=== PATIENT | female | born 1955 | race Caucasian/White ===

== ENCOUNTER 2023-03-25 17:27 | Inpatient (IN) ==
[2023-03-25] MEDS ORDERED: SODIUM CHLORIDE 0.9% 500 ML IV STA (17:46)
[2023-03-25 18:13] LABS: Hematocrit (blood only) 40.8 % (37.0-47.0); Hemoglobin 13.9 g/dl (12.0-16.0); Mean Corpuscular Hgb Conc 34.1 g/dL (32.0-36.0); Mean Corpuscular Volume 87.9 fL (80.0-100.0); Mean Platelet Volume 10.3 fL (9.4-12.4); Platelet Count 287 K/uL (130-400); RDW Coefficient of Variation 14.2 % (11.5-14.5); RDW Standard Deviation 45.4 fL (36.4-46.3); Red Blood Count 4.64 M/uL (4.20-5.40); White Blood Count 16.29 K/ul (4.8-10.8)
[2023-03-25 18:31] LABS: Albumin Globulin Ratio 1.4 (0.9-2); Albumin Level 4.6 gm/dl (3.4-5.0); BUN Creatinine Ratio 17.4 (10-20); Bilirubin,Total 0.8 mg/dl (0.2-1.0); Calcium 9.8 mg/dl (8.6-10.3); Creatinine Clr Calc Pharmacy 51.1 ml/min; Est GFR (African American) 79.9 ml/min; Est GFR (Non-African American) 68.9 ml/min; Globulin 3.2 gm/dl (2.5-4.0); Total Protein 7.8 gm/dl (6.0-8.3)
--- NOTE | 2023-03-25 18:35 | Emergency Department Note ---
Impression & Plan Acute appendicitis ED Provider Note INFORMANT: Patient ED PROVIDER(S): Eliot Beard DO CHIEF COMPLAINT: Right lower quadrant abdominal pain PLAN: Disposition: Admission Outpatient prescription management: [none] Discussion with: Surgery service with Dr. Marlys Mata MEDICAL DECISION MAKING: This is a 67-year-old female who presents to the ED with a chief complaint of right lower quadrant abdominal pain that started last night. She states that she had 1 episode of vomiting last night and had no p.o. intake today because of poor appetite. Came in for evaluation. She does have tenderness in the right lower quadrant on my exam. No rebound. No CVA tenderness. Lungs are clear. No rashes. White also count is elevated 16,000. Chemistry panel showed no el ectrolyte abnormality or kidney dysfunction. Lipase is negative for pancreatitis. CT scan is positive for appendicitis. Spoke with the surgeon on- call. The patient will be going to the operating room Triage Nursing notes reviewed. Vital Signs: reviewed Prior /Outside records reviewed: [none] Differential diagnosis: Differential includes appendicitis, diverticulitis, bowel perforation, kidney stone, vascular issue, UTI, pyelonephritis, other Diagnostics, as interpreted by me: 12 lead ECG: Normal sinus rhythm 98. No elevation. No PVCs. Normal QTc Cardiac Monitoring ordered: Sinus rhythm in the 90s Medical decision rules: [none] Imaging studies: CT scan of the abdomen pelvis: Acute appendicitis Procedures: none. Critical care: none. HPI: See MDM above. PAST MEDICAL HISTORY: See Below PAST SURGICAL HISTORY: See Below SOCIAL HISTORY: See Below HOME MEDICATIONS:See Below ALLERGIES: See Below VITALS: See Below PHYSICAL EXAMINATION: See MDM for positive findings otherwise unremarkable. CONSTITUTIONAL/VITAL SIGNS: Reviewed GENERAL:done as appropriate INTEGUMENTARY: done as appropriate HEAD: done as appropriate EYES: done as appropriate RESPIRATORY: done as appropriate CARDIOVASCULAR:done as appropriate GI/ABDOMEN:done as appropriate EXTREMITIES: done as appropriate NEUROLOGICAL: done as appropriate PSYCHIATRIC:done as appropriate MUSCULOSKELETAL:done as appropriate TRIAGE NURSING DOCUMENTATION REVIEWED. Past Med/Surg History Medical History Bilateral hand pain Cervical pain D/T RA Hammer toe of second toe of right foot History of stroke 12/2018 DURING SLEEP/BALANCE ISSUES-WENT TO [facility] ER-CT SCAN CLEARED [facility] NEXT COUPLE DAYS-"CT SCAN MULTIPLE STROKES DURING SLEEP-PROBLEMS WITH BALANCE"-F/U DR CLAUDIO MEDEIROS NO NEW ISSUES-JUST BALANCE ISSUES PERSIST Hypertension Hyponatremia follows with Dr. Villa Rheumatoid arthritis Scoliosis Sensorineural hearing loss of both ears Sjogren's disease Tinnitus, bilateral Surgical History H/O elbow surgery H/O hand surgery R/L History of elbow surgery Right ulnar nerve transposition surgery History of esophagogastroduodenoscopy (EGD) History of hand surgery Bilateral MCP athroplasty History of knee replacement bilateral History of loop recorder Hx of shoulder surgery Right shoulder reverse total arthroplasty 06/06/[address] Rm in [place] S/P knee replacement Family History Father Myocardial infarction Stroke Mother Neoplasm of ovary Family hx of colon cancer Ovarian cancer Brother Emphysema of lung Other Cancer Heart disease Hypertension Lung disease Denies family history of Prostate cancer Breast cancer Colorectal cancer Social History Smoking Status: Never smoker Second Hand Exposure: No; Do You Dip or Chew Tobacco: No; Hx Alcohol Use: No Hx Substance Use: No Preferred Language: Japanese Communication Ability: Effective Visual Impairment: Limited Hearing Ability: Normal Embedder Required: No Beliefs That Will Affect Care: None marital status: Current Living Situation: Spouse current occupational status: retired Feels Safe at Home: Yes Childhood Exposure to Second-Hand Smoke: No Dental Care, Regularly: Yes Physical Activity Frequency: Other Physical Activity Frequency Comment: Exercise limited by physical condition Seatbelt Use: always Sunscreen Use: Yes Assistive Devices: Cane, Denture - Upper and Glasses Allergies Allergies Allergy/AdvReac Type Severity Reaction Status Date / Time leflunomide Allergy Severe DIARRHEA Verified 03/21/23 12:14 AND VOMITING chloroquine Allergy Unknown Unknown Verified 03/21/23 12:14 hydroxychloroquine Allergy Unknown DIARRHEA Verified 03/21/23 12:14 [From Plaquenil] AND VOMITING SEA Inhibitors AdvReac cough Verified 03/21/23 12:14 Home Meds Home Medications Medication Instructions Recorded Confirmed B-complex with vitamin C 1 tab PO QAM 10/11/18 03/21/23 celecoxib 200 mg capsule (Celebrex) 200 mg PO QAM 10/11/18 03/21/23 cholecalciferol (vitamin D3) 25 1,000 units PO QAM 10/11/18 03/21/23 mcg (1,000 unit) capsule famotidine 40 mg tablet (Pepcid) 40 mg PO QAM 10/11/18 03/21/23 methotrexate sodium 2.5 mg tablet 12.5 mg PO WK 10/14/18 03/21/23 cyclosporine 0.05 % eye drops in a 1 drp ophthalmic (eye) BID 01/03/19 03/21/23 dropperette (Restasis) acetaminophen 650 mg 1,300 mg PO Q12H PRN Pain 07/05/19 03/21/23 tablet,extended release (Tylenol Arthritis Pain) diphenhydramine HCl 25 mg capsule 25 mg PO HS PRN Sleep 08/21/19 03/21/23 (Sleep Aid (diphenhydramine)) melatonin 5 mg tablet 5 mg PO HS PRN Sleep 08/21/19 03/21/23 rituximab 10 mg/mL 10 mg IV Q6MO 09/01/19 03/21/23 concentrate,intravenous (Rituxan) folic acid 1 mg tablet 3 mg PO DAILY Hair Loss #120 tabs 02/15/22 03/21/23 aspirin 81 mg capsule 81 mg PO QAM 02/09/23 03/21/23 fluoxetine 40 mg capsule (Prozac) 40 mg PO QPM 02/09/23 03/21/23 pilocarpine HCl 5 mg tablet 5 mg PO QPM 02/09/23 03/21/23 Previous Rx's Medication Instructions Recorded cyclobenzaprine 10 mg tablet 10 mg PO TID PRN muscle spasm #90 01/16/23 tabs hydrocodone 5 mg-acetaminophen 325 1 tab PO HS #30 tabs 03/05/23 mg tablet tramadol 50 mg tablet 50 mg PO BID PRN pain #60 tabs 03/05/23 olmesartan 40 mg tablet 40 mg PO DAILY #30 tabs 03/21/23 Results & Data (ED) Vital Signs Vital Signs - 24 hr 03/25/23 17:29 03/25/23 17:27 03/25/23 17:46 Temperature 36.9 C Temperature Source Temporal Artery Scan Pulse Rate 114 H Pulse Rate [Apical] 99 H Pulse Rhythm [Apical] Pulse Strength [Apical] Respiratory Rate 18 16 Respiratory Effort / Characteristics Non-Labored Spontaneous Respiratory Depth Normal Respiratory Pattern Regular Blood Pressure 114/71 Blood Pressure [Left Arm] 108/77 Blood Pressure Mean 85 Blood Pressure Mean [Left Arm] 87 Blood Pressure Position Sitting Pulse Oximetry 97 96 97 Oxygen Delivery Method Room Air Room Air Sepsis Recent Fever Within 48 Hours No Sepsis New/Unexplained Change in Mental Status N/A Sepsis Action Taken by Nursing No Action Required 03/25/23 19:18 Temperature Temperature Source Pulse Rate Pulse Rate [Apical] 98 H Pulse Rhythm [Apical] Regular Pulse Strength [Apical] Normal Respiratory Rate 22 Respiratory Effort / Characteristics Non-Labored Spontaneous Respiratory Depth Normal Respiratory Pattern Blood Pressure Blood Pressure [Left Arm] 154/90 H Blood Pressure Mean Blood Pressure Mean [Left Arm] 111 Blood Pressure Position Pulse Oximetry 98 Oxygen Delivery Method Room Air Sepsis Recent Fever Within 48 Hours Sepsis New/Unexplained Change in Mental Status Sepsis Action Taken by Nursing Laboratory Data 03/25/23 18:00 03/25/23 18:00 Lab Results 03/25/23 03/25/23 03/25/23 Range/Units 18:00 18:00 19:15 WBC 16.29 H (4.8-10.8) K/ul RBC 4.64 (4.20-5.40) M/uL Hgb 13.9 (12.0-16.0) g/dl Hct 40.8 (37.0-47.0) % MCV 87.9 (80.0-100.0) fL MCH 30.0 (25.0-34.0) pg MCHC 34.1 (32.0-36.0) g/dL RDW Std Deviation 45.4 (36.4-46.3) fL RDW Coeff of Hortencia 14.2 (11.5-14.5) % Plt Count 287 (130-400) K/uL MPV 10.3 (9.4-12.4) fL Immature Gran % (Auto) 0.4 % Neut % (Auto) 91.9 % Lymph % (Auto) 4.5 % [place]min[place] % (Auto) 2.8 % Eos % (Auto) 0.1 % Baso % (Auto) 0.3 % Neut # (Auto) 14.98 H (1.40-6.50) K/uL Lymph # (Auto) 0.74 L (1.2-3.4) K/uL [place]minn # (Auto) 0.45 (0.11-0.59) K/uL Eos # (Auto) 0.01 (0-0.50) K/uL Baso # (Auto) 0.05 (0-0.2) K/uL Immature Gran # (Auto) 0.06 (0.01-0.20) K/uL Sodium 130 L (136-145) mmol/L Potassium 4.0 (3.5-5.1) mmol/L Chloride 96 L (98-107) mmol/L Carbon Dioxide 24 (21-32) mmol/L Anion Gap 10 (3-11) BUN 15 (6-23) mg/dl Creatinine 0.86 (0.6-1.2) mg/dl Est Cr Clr Drug Dosing 51.1 ml/min Est GFR ( Amer) 79.9 ml/min Est GFR (Non-Af Amer) 68.9 ml/min BUN/Creatinine Ratio 17.4 (10-20) Glucose 104 H (70-99(Fasting)) mg/dl Calcium 9.8 (8.6-10.3) mg/dl Total Bilirubin 0.8 (0.2-1.0) mg/dl AST 24 (13-39) U/L ALT 20 (7-52) U/L Alkaline Phosphatase 82 (34-104) U/L Total Protein 7.8 (6.0-8.3) gm/dl Albumin 4.6 (3.4-5.0) gm/dl Globulin 3.2 (2.5-4.0) gm/dl Albumin/Globulin Ratio 1.4 (0.9-2) Lipase 19 (11-82) U/L Urine Color Yellow Urine Appearance Clear (Clear) Urine pH 7.0 (4.5-7.5) Ur Specific [place] 1.027 (1.000-1.030) Urine Protein Negative (Negative) Urine Glucose (UA) Negative (Negative) Urine Ketones Trace H (Negative) Urine Blood Negative (Negative) Urine Nitrite Negative (Negative) Urine Bilirubin Negative (Negative) Urine Urobilinogen Negative (Negative) Ur Leukocyte Esterase Negative (Negative) Administered Medications Discontinued Medications Sodium Chloride (Nss) 500 mls @ 999 mls/hr IV .Q31M STA Stop: 03/25/23 18:16 Last Infusion: 03/25/23 18:39 Dose: 0 mls/hr Documented By: Admin: 03/25/23 18:03 Dose: 999 mls/hr Documented By: JEFFERSON Ioversol (Optiray 320 100ml) 81 ml IV ONCE ONE Stop: 03/25/23 18:47 Last Admin: 03/25/23 18:47 Dose: 81 ml Documented By: SHARON Imaging Data Radiologist's Impression: Abdomen/Pelvis CT 03/25/23 17:46 CT abd pelvis IV con only CLINICAL HISTORY: rlq abd pain TECHNIQUE: Helical axial images of the abdomen and pelvis were obtained and displayed. Automated dose lowering techniques and/or adjustment according to patient size were utilized for this exam. This exam was performed with intravenous contrast. CT DOSE: 602.22 mGy.cm COMPARISON: Comparison is made to CT abdomen pelvis 06/30/2022 FINDINGS: Lower chest: Fibrotic changes are seen in the lungs. Liver: Unremarkable. No focal lesions are seen. Gallbladder and biliary tree: No calcified gallstones. Normal caliber wall. No intra- or extrahepatic biliary ductal dilation. Pancreas: Unremarkable, no focal lesions. Spleen: Unremarkable. Adrenals: Unremarkable. Kidneys and ureters: A right renal cyst is again seen. Bladder: Unremarkable. Reproductive organs: Unremarkable. Bowel: There is dilation and wall thickening and enhancement of the appendix measuring 10 mm. [place] fat stranding is seen. Lymph nodes Retroperitoneal: Unremarkable. Pelvic: Unremarkable. Mesenteric: Unremarkable. Peritoneum: Fat stranding is seen in the right lower quadrant about the dilated appendix. No pneumoperitoneum or abnormal fluid collections are seen. Vessels: Atherosclerotic calcifications are seen. Abdominal wall: Unremarkable. Bones: Degenerative changes and scoliosis are seen. IMPRESSION: 1. Appendicitis is seen without evidence of perforation or abscess formation. 2. Interstitial lung disease is seen. ACT 112: Negative or not required by law. Electronically signed by: Francisco Agustin M.D. 03/25/2023 7:37 PM Discharge Plan Visit Data Chief Complaint: Abdominal Pain Stated Complaint: ABDOMINAL PAIN ED Provider: Eliot Beard Discharge Problem: Acute appendicitis Patient Disposition: Being Evaluated by Surgeon Forms Stand Alone Forms: [facility] [place] Prescriptions Prescriptions: No Action celecoxib [Celebrex] 200 mg capsule 200 mg PO QAM famotidine [Pepcid] 40 mg tablet 40 mg PO QAM cholecalciferol (vitamin D3) 1,000 unit capsule 1,000 units PO QAM B-complex with vitamin C tablet extended release 1 tab PO QAM methotrexate sodium 2.5 mg tablet 12.5 mg PO WK Rx Instructions: MONDAYS cyclobenzaprine 10 mg tablet 10 mg PO TID PRN (Reason: muscle spasm) Qty: 90 2RF tramadol 50 mg tablet 50 mg PO BID PRN (Reason: pain) Qty: 60 0RF hydrocodone-acetaminophen 5-325 mg tablet 1 tab PO HS Qty: 30 0RF olmesartan 40 mg tablet 40 mg PO DAILY Qty: 30 3RF folic acid 1 mg tablet 3 mg PO DAILY Qty: 120 cyclosporine [Restasis] 0.05 % dropperette 1 drp ophthalmic (eye) BID acetaminophen [Tylenol Arthritis Pain] 650 mg Tablet Extended Release 1,300 mg PO Q12H PRN (Reason: Pain) diphenhydramine HCl [Sleep Aid (diphenhydramine)] 25 mg Capsule 25 mg PO HS PRN (Reason: Sleep) melatonin 5 mg Tablet 5 mg PO HS PRN (Reason: Sleep) Rituxan 10 mg/mL concentrate 10 mg IV Q6MO Rx Instructions: Q 6 MONTHS-LAST DOSE 06/2019 fluoxetine [Prozac] 40 mg capsule 40 mg PO QPM pilocarpine HCl 5 mg Tablet 5 mg PO QPM aspirin 81 mg Capsule 81 mg PO QAM Referrals Referrals: Sydnee Mckeon MD [Primary Care Provider] -
[2023-03-25 18:42] LABS: Basophils # (auto) 0.05 K/uL (0-0.2); Basophils % (auto) 0.3 %; Eosinophils # (auto) 0.01 K/uL (0-0.50); Eosinophils % (auto) 0.1 %; Immature Granulocytes # (auto) 0.06 K/uL (0.01-0.20); Immature Granulocytes % (auto) 0.4 %; Lymphocytes # (auto) 0.74 K/uL (1.2-3.4); Lymphocytes % (auto) 4.5 %; Monocytes # (auto) 0.45 K/uL (0.11-0.59); Monocytes % (auto) 2.8 %; Neutrophils # (auto) 14.98 K/uL (1.40-6.50); Neutrophils % (auto) 91.9 %
[2023-03-25] MEDS ORDERED: OPTIRAY 320 100ml IV ONE (18:46)
--- NOTE | 2023-03-25 19:40 | CT Scan Report ---
CT abd pelvis IV con only CLINICAL HISTORY: rlq abd pain TECHNIQUE: Helical axial images of the abdomen and pelvis were obtained and displayed. Automated dose lowering techniques and/or adjustment according to patient size were utilized for this exam. This e xam was performed with intravenous contrast. CT DOSE: 602.22 mGy.cm COMPARISON: Comparison is made to CT abdomen pelvis 06/30/2022 FINDINGS: Lower chest: Fibrotic changes are seen in the lungs. Liver: Unremarkable. No focal lesions are seen. Gallbladder and biliary tree: No calcified gallstones. Normal caliber wall. No intra- or extrahepatic biliary ductal dilation. Pancreas: Unremarkable, no focal lesions. Spleen: Unremarkable. Adrenals: Unremarkable. Kidneys and ureters: A right renal cyst is again seen. Bladder: Unremarkable. Reproductive organs: Unremarkable. Bowel: There is dilation and wall thickening and enhancement of the appendix measuring 10 mm. [place] fat stranding is seen. Lymph nodes Retroperitoneal: Unremarkable. Pelvic: Unremarkable. Mesenteric: Unremarkable. Peritoneum: Fat stranding is seen in the right lower quadrant about the dilated appendix. No pneumope ritoneum or abnormal fluid collections are seen. Vessels: Atherosclerotic calcifications are seen. Abdominal wall: Unremarkable. Bones: Degenerative changes and scoliosis are seen. IMPRESSION: 1. Appendicitis is seen without evidence of perforation or abscess formation. 2. Interstitial lung disease is seen. ACT 112: Negative or not required by law. Electronically signed by: Francisco Agustin M.D. 03/25/2023 7:37 PM
[2023-03-25 19:49] LABS: Appearance Urine Clear (Clear); Bilirubin Urine Negative (Negative); Blood Urine Negative (Negative); Color Urine Yellow; Glucose Urine UA Negative (Negative); Ketones Urine Trace (Negative); Leukocyte Esterase Urine Negative (Negative); Nitrite Urine Negative (Negative); Protein Urine Negative (Negative); Specific Gravity Urine 1.027 (1.000-1.030); Urobilinogen Urine Negative (Negative)
[2023-03-25] MEDS ORDERED: PIPERACILLIN/TAZOBACTAM 4.5 GM/120 ML BAG IV ONE (20:15)
[2023-03-25] MEDS ORDERED: PIPERACILLIN/TAZOBACTAM 4.5 GM/120ML D5W IV ONE (20:16)
[2023-03-25] MEDS ORDERED: ONDANSETRON INJ 2 MG/ML 2 ML VIAL IV PRN ×2 (20:35→21:05)
[2023-03-25] MEDS ORDERED: MoRPHine SULFATE 4 MG/ML 1 ML CARP\\VIAL IV PRN ×2 (20:35→20:43)
[2023-03-25] MEDS ORDERED: ACETAMINOPHEN 1,000 MG/100 ML VIAL IV PRN ×2 (20:35→20:44)
[2023-03-25] MEDS ORDERED: BUPIVACAINE/EPINEPHRINE 0.5% MPF 1:200,000 30 ML VIAL ONE (20:39)
--- NOTE | 2023-03-25 20:42 | History & Physical Report ---
Date of Service March 25, 2023 Assessment & Plan (1) Acute appendicitis: Plan: Due to the patient's findings on imaging, her clinical presentation, and labs she is being admitted to the hospital we will proceed as follows: We will keep the patient n.p.o. We will initiate intravenous fluids We will initiate broad-spectrum antibiotics in the form of Zosyn. The first dose has been given in the emergency department Analgesia be provided Antiemetics we provided We have tentatively planned to perform an appendectomy this evening with Dr. Meyer. I have outlined the risks, benefits, alternatives and expected postop course with the patient and she wishes to proceed. Additional recommendations be forthcoming based on operative findings and her postoperative recovery We will use SCDs for DVT prevention, no chemical means for the present time due to planned surgery The patient be a level 1 full code History of Present Illness Chief Complaint: Abdominal pain Primary Care Provider: Sydnee Mckeon MD This is a 67-year-old female who presented to the emergency department secondary to abdominal pain. Patient notes that the pain began the evening of 03/24/2023 and is confined mainly to the right lower quadrant. She notes that the pain does not radiate. She notes the pain is worse with certain movements and she does not really identify any palliative factors other than analgesics administered in the emergency department. She says that she has had sweats at times but admits she did not take her temperature. She has had 1 episode of nausea and vomiting. She says that she has never had any abdominal surgeries in the past. She notes that her most recent oral intake was yesterday and specifically notes she did not eat or drink anything today. Thus far in the emergency department the patient has had labs and imaging which I independent reviewed in the emergency department she had a chest x-ray that did not show any evidence of pneumonia. A CT scan of the abdomen and pelvis showed the patient had findings concerning for an appendicitis as there was fat stranding and wall thickening noted of the appendix. The appendix was measured to a size of about 10 mm without evidence of a perforation or abscess. Labs include a CBC were white blood cell count was elevated at 13.2. Hemoglobin, hematocrit, and platelet count were normal. Chemistry profile showed sodium was 130. Her potassium was 4.0. BUN and creatinine were 15 and 0.8. There is no elevation of her LFTs or lipase. A urinalysis was not indicative of infection. A COVID test was noted to be negative. An EKG showed normal sinus rhythm without changes indicative of acute ischemia I question the patient about her activities of daily living and she says that her mobility is somewhat limited due to her history of rheumatoid arthritis. The patient says she is currently in the middle of a family move and she has been able to participate in this process. She notes that with her day-to-day activities she does not get chest pain or develops shortness of breath that limits her activity. Patient does note that she had a history of a stroke approximately 4 years ago. She notes that she woke up with neurologic deficits 1 morning. I questioned her about these deficits and she specifically denied any visual changes or visual loss. She denied any garbled or slurred speech. She just noted that her balance and coordination were off and she had slight weakness of her right upper extremity. She notes that she has made a near 100% recovery but does have some slight weakness of her right upper extremity. No FHX of colon cancer and she has never had a colonoscopy in the past. She say s she is scheduled for a colonoscopy next month. No prior GI symptoms. At the time of my interview she was resting comfortably in bed and she was in no distress Allergies Allergy/AdvReac Type Severity Reaction Status Date / Time leflunomide Allergy Severe DIARRHEA Verified 03/21/23 12:14 AND VOMITING chloroquine Allergy Unknown Unknown Verified 03/21/23 12:14 hydroxychloroquine Allergy Unknown DIARRHEA Verified 03/21/23 12:14 [From Plaquenil] AND VOMITING SEA Inhibitors AdvReac cough Verified 03/21/23 12:14 Home Medications Medication Instructions Recorded Confirmed Type B-complex with vitamin C 1 tab PO QAM 10/11/18 03/21/23 History celecoxib 200 mg capsule (Celebrex) 200 mg PO QAM 10/11/18 03/21/23 History cholecalciferol (vitamin D3) 25 1,000 units PO QAM 10/11/18 03/21/23 History mcg (1,000 unit) capsule famotidine 40 mg tablet (Pepcid) 40 mg PO QAM 10/11/18 03/21/23 History methotrexate sodium 2.5 mg tablet 12.5 mg PO WK 10/14/18 03/21/23 History cyclosporine 0.05 % eye drops in a 1 drp ophthalmic (eye) BID 01/03/19 03/21/23 History dropperette (Restasis) acetaminophen 650 mg 1,300 mg PO Q12H PRN Pain 07/05/19 03/21/23 History tablet,extended release (Tylenol Arthritis Pain) diphenhydramine HCl 25 mg capsule 25 mg PO HS PRN Sleep 08/21/19 03/21/23 History (Sleep Aid (diphenhydramine)) melatonin 5 mg tablet 5 mg PO HS PRN Sleep 08/21/19 03/21/23 History rituximab 10 mg/mL 10 mg IV Q6MO 09/01/19 03/21/23 History concentrate,intravenous (Rituxan) folic acid 1 mg tablet 3 mg PO DAILY Hair Loss #120 tabs 02/15/22 03/21/23 History cyclobenzaprine 10 mg tablet 10 mg PO TID PRN muscle spasm #90 01/16/23 03/21/23 Rx tabs aspirin 81 mg capsule 81 mg PO QAM 02/09/23 03/21/23 History fluoxetine 40 mg capsule (Prozac) 40 mg PO QPM 02/09/23 03/21/23 History pilocarpine HCl 5 mg tablet 5 mg PO QPM 02/09/23 03/21/23 History hydrocodone 5 mg-acetaminophen 325 1 tab PO HS #30 tabs 03/05/23 03/21/23 Rx mg tablet tramadol 50 mg tablet 50 mg PO BID PRN pain #60 tabs 03/05/23 03/21/23 Rx olmesartan 40 mg tablet 40 mg PO DAILY #30 tabs 03/21/23 03/21/23 Rx Past Med/Surg History Medical History Bilateral hand pain Cervical pain D/T RA Hammer toe of second toe of right foot History of stroke 12/2018 DURING SLEEP/BALANCE ISSUES-WENT TO [facility] ER-CT SCAN CLEARED [facility] [place] NEXT COUPLE DAYS-"CT SCAN MULTIPLE STROKES DURING SLEEP-PROBLEMS WITH BALANCE"-F/U DR CLAUDIO MEDEIROS NO NEW ISSUES-JUST BALANCE ISSUES PERSIST Hypertension Hyponatremia follows with Dr. Villa Rheumatoid arthritis Scoliosis Sensorineural hearing loss of both ears Sjogren's disease Tinnitus, bilateral Surgical History H/O elbow surgery H/O hand surgery R/L History of elbow surgery Right ulnar nerve transposition surgery History of esophagogastroduodenoscopy (EGD) History of hand surgery Bilateral MCP athroplasty History of knee replacement bilateral History of loop recorder Hx of shoulder surgery Right shoulder reverse total arthroplasty 06/06/[address] Rm in [place] S/P knee replacement Family History Father Myocardial infarction Stroke Mother Neoplasm of ovary Family hx of colon cancer Ovarian cancer Brother Emphysema of lung Other Cancer Heart disease Hypertension Lung disease Denies family history of Prostate cancer Breast cancer Colorectal cancer Social History Smoking Status: Never smoker Second Hand Exposure: No; Do You Dip or Chew Tobacco: No; Hx Alcohol Use: No Hx Substance Use: No Preferred Language: Lithuanian Communication Ability: Effective Visual Impairment: Limited Hearing Ability: Normal Support Director Required: No Beliefs That Will Affect Care: None marital status: Current Living Situation: Spouse current occupational status: retired Feels Safe at Home: Yes Childhood Exposure to Second-Hand Smoke: No Dental Care, Regularly: Yes Physical Activity Frequency: Other Physical Activity Frequency Comment: Exercise limited by physical condition Seatbelt Use: always Sunscreen Use: Yes Assistive Devices: Cane, Denture - Upper and Glasses Review of Systems Constitutional: + sweats; no fever Eyes: no blind spots Ear, Nose, Mouth, Throat: no ear pain and no hearing loss Respiratory: no cough and no dyspnea Cardiovascular: no chest pain Gastrointestinal: as per Subjective / HPI Genitourinary: no dysuria Musculoskeletal: no back pain Integumentary: no rash Neurologic: no localized weakness Physical Exam Constitutional: WD/WN, vitals as above Eyes: PERRL, conjunctivae normal, anicteric sclerae ENMT: Ears: no hearing impairment and no external ear abnormality Mouth: no oropharynx abnormality Neck: trachea midline Respiratory: normal respiratory effort, lungs clear to auscultation Cardiovascular: Rate/Rhythm: regular rate, regular rhythm and + tachycardic Gastrointestinal (Abdomen): Abdomen is soft, nondistended, and nonrigid. Bowel sounds are hypoactive. There is marked tenderness with palpation in the right lower quadrant McBurney's point with some rebound tenderness noted Musculoskeletal: No calf tenderness. Patient had multiple deformities of her fingers bilaterally secondary to rheumatoid arthritis Skin: no rashes Neurologic: Cranial nerves II through XII are grossly intact. Patient is able to move all 4 extremities and follows simple commands without noted focal deficits. Patient was noted to have some slight weakness of the right upper extremity compared to the left Psychiatric: A+Ox3, euthymic affect Results & Data Results & Data Vital Signs (Past 12 Hours) Vital Signs Temp Pulse Pulse Resp BP BP Pulse Ox 03/25/23 19:18 98 H 22 154/90 H 98 03/25/23 17:46 97 03/25/23 17:27 99 H 16 108/77 96 03/25/23 17:29 36.9 C 114 H 18 114/71 97 O2 Del Method 03/25/23 19:18 Room Air 03/25/23 17:46 Room Air 03/25/23 17:27 03/25/23 17:29 Room Air Supervising Physician Co-Signing Physician Notes I have seen this patient and agree with above. Patient proceeding to the OR tonight for laparoscopic appendectomy, possible open. The details of the procedure have been explained to her including the risks and the benefits. She expressed understanding of this explanation and all of her questions ere answered. Consent was obtained. PG Care Time/CCT Total # of Minutes Spent Total Time Spent with Patient: Total time spent is greater than 50% in coordination of care (as documented) at patient's floor/unit and/or counseling patient: [place] [address] INT INP/OBS CARE 3/75MIN Patient Type New History Detailed Exam Detailed Medical Decision Making Low Complexity Diagnoses Acute appendicitis K35.80
[2023-03-25] MEDS ORDERED: fentaNYL citrate PF 100 MCG/2 ML VIAL IV PRN (21:05)
[2023-03-25] MEDS ORDERED: HYDROmorphone INJ 2 MG/ML SYR/VIAL IV PRN (21:05)
[2023-03-25] MEDS ORDERED: PROMETHAZINE HCL 6.25 MG in SODIUM CHLORIDE 0.9% 50 ML IV PRN (21:05)
[2023-03-25] MEDS ORDERED: ePHEDrine sulfate 50 MG/ML AMP IV PRN (21:05)
[2023-03-25] MEDS ORDERED: ATROPINE SULFATE 0.1 MG/ML 10ML SYR IV PRN (21:05)
--- NOTE | 2023-03-25 21:06 | Anesthesiology Consultation ---
Date of Service March 25, 2023 Assessment & Plan Chart Review Chart Review: Acceptable Risk for Surgery and Patient NOT seen in Pre Admission Testing Consults Requested none ASA [id number] Proposed Anesthesia Anesthesia Type: General Risk / Benefits Reviewed With: PT / POA / Parent / Guardian, Accepts Plan and Informed Consent Obtained History Surgery Operation Date: 03/25/23 21:30 Proposed Procedures p Laparoscopic Appendectomy - Karlee Lindsey, Height/Weight Height: 5 ft 3 in Weight: 62.4 kg Allergies Allergy/AdvReac Type Severity Reaction Status Date / Time leflunomide Allergy Severe DIARRHEA Verified 03/21/23 12:14 AND VOMITING chloroquine Allergy Unknown Unknown Verified 03/21/23 12:14 hydroxychloroquine Allergy Unknown DIARRHEA Verified 03/21/23 12:14 [From Plaquenil] AND VOMITING SEA Inhibitors AdvReac cough Verified 03/21/23 12:14 Medications Home Medications Medication Instructions Recorded Confirmed Last Taken B-complex with vitamin C 1 tab PO QAM 10/11/18 03/21/23 02/20/23 celecoxib 200 mg capsule (Celebrex) 200 mg PO QAM 10/11/18 03/21/23 02/20/23 cholecalciferol (vitamin D3) 25 1,000 units PO QAM 10/11/18 03/21/23 02/20/23 mcg (1,000 unit) capsule famotidine 40 mg tablet (Pepcid) 40 mg PO QAM 10/11/18 03/21/23 02/20/23 methotrexate sodium 2.5 mg tablet 12.5 mg PO WK 10/14/18 03/21/23 05/05/19 cyclosporine 0.05 % eye drops in a 1 drp ophthalmic (eye) BID 01/03/19 03/21/23 02/20/23 dropperette (Restasis) acetaminophen 650 mg 1,300 mg PO Q12H PRN Pain 07/05/19 03/21/23 Unknown tablet,extended release (Tylenol Arthritis Pain) diphenhydramine HCl 25 mg capsule 25 mg PO HS PRN Sleep 08/21/19 03/21/23 Unknown (Sleep Aid (diphenhydramine)) melatonin 5 mg tablet 5 mg PO HS PRN Sleep 08/21/19 03/21/23 Unknown rituximab 10 mg/mL 10 mg IV Q6MO 09/01/19 03/21/23 Unknown concentrate,intravenous (Rituxan) folic acid 1 mg tablet 3 mg PO DAILY Hair Loss #120 tabs 02/15/22 03/21/23 02/20/23 cyclobenzaprine 10 mg tablet 10 mg PO TID PRN muscle spasm #90 01/16/23 03/21/23 Unknown tabs aspirin 81 mg capsule 81 mg PO QAM 02/09/23 03/21/23 02/14/23 fluoxetine 40 mg capsule (Prozac) 40 mg PO QPM 02/09/23 03/21/23 02/20/23 pilocarpine HCl 5 mg tablet 5 mg PO QPM 02/09/23 03/21/23 02/20/23 hydrocodone 5 mg-acetaminophen 325 1 tab PO HS #30 tabs 03/05/23 03/21/23 Unknown mg tablet tramadol 50 mg tablet 50 mg PO BID PRN pain #60 tabs 03/05/23 03/21/23 Unknown olmesartan 40 mg tablet 40 mg PO DAILY #30 tabs 03/21/23 03/21/23 Unknown Past Medical History Medical History Bilateral hand pain Cervical pain D/T RA Hammer toe of second toe of right foot History of stroke 12/2018 DURING SLEEP/BALANCE ISSUES-WENT TO [facility] ER-CT SCAN CLEARED [facility] [place] NEXT COUPLE DAYS-"CT SCAN MULTIPLE STROKES DURING SLEEP-PROBLEMS WITH BALANCE"-F/U DR CLAUDIO MEDEIROS NO NEW ISSUES-JUST BALANCE ISSUES PERSIST Hypertension Hyponatremia follows with Dr. Villa Rheumatoid arthritis Scoliosis Sensorineural hearing loss of both ears Sjogren's disease Tinnitus, bilateral Exercise / Class Metabolic Activity II 4-5 Yardwork/Stairs/Walk up hill Past Family History Family History Father Myocardial infarction Stroke Mother Neoplasm of ovary Family hx of colon cancer Ovarian cancer Brother Emphysema of lung Other Cancer Heart disease Hypertension Lung disease Denies family history of Prostate cancer Breast cancer Colorectal cancer Past Surgical History Surgical History H/O elbow surgery H/O hand surgery R/L History of elbow surgery Right ulnar nerve transposition surgery History of esophagogastroduodenoscopy (EGD) History of hand surgery Bilateral MCP athroplasty History of knee replacement bilateral History of loop recorder Hx of shoulder surgery Right shoulder reverse total [facility] [facility] knee [facility] Past Anesthesia History No Hx of Anesthesia Complications and No Family Hx of Anesthesia Complications History of PONV No Hx of PONV and No Hx of Motion Sickness Social History Smoking Status: Never smoker Do You Dip or Chew Tobacco: No Hx Alcohol Use: No Hx Substance Use: No substance use type: does not use Physical Exam Vital Signs Last Vital Signs Temp 36.9 C 03/25/23 17:29 Pulse 98 H 03/25/23 19:18 Resp 22 03/25/23 19:18 BP 154/90 H 03/25/23 19:18 Pulse Ox 98 03/25/23 19:18 O2 Del Method Room Air 03/25/23 19:18 ENMT Mouth: no dentition abnormality Thyromental Distance: > or= 3.5 Finger Breadths Mallampati Class: II Neck normal visual inspection Respiratory normal respiratory effort Auscultation: lungs clear to auscultation bilaterally Cardiovascular Rate/Rhythm: regular rate and regular rhythm Psychiatric Orientation: alert Testing Laboratory Results 03/25/23 18:00 03/25/23 18:00 Urine Color Yellow 03/25/23 19:15 Urine Appearance Clear (Clear) 03/25/23 19:15 Urine pH 7.0 (4.5-7.5) 03/25/23 19:15 Ur Specific [place] 1.027 (1.000-1.030) 03/25/23 19:15 Urine Protein Negative (Negative) 03/25/23 19:15 Urine Glucose (UA) Negative (Negative) 03/25/23 19:15 Urine Ketones Trace (Negative) H 03/25/23 19:15 Urine Nitrite Negative (Negative) 03/25/23 19:15 Ur Leukocyte Esterase Negative (Negative) 03/25/23 19:15
[2023-03-25] MEDS ORDERED: fentaNYL citrate PF 100 MCG/2 ML VIAL ONE (21:09)
[2023-03-25] MEDS ORDERED: PROPOFOL IV EMULSION 10 MG/ML 20 ML VIAL IV ONE (21:13)
[2023-03-25] MEDS ORDERED: ROCURONIUM BROMIDE 10 MG/ML 5 ML VIAL IV ONE (21:13)
[2023-03-25] MEDS ORDERED: SUCCINYLCHOLINE CHLORIDE 20 MG/ML 10 ML VIAL IV ONE (21:13)
[2023-03-25] MEDS ORDERED: LIDOCAINE 2% 2 ML VIAL/AMP(20MG/ML) INFIL ONE (21:13)
[2023-03-25] MEDS ORDERED: KETAMINE 50 MG/5 ML SYRINGE ONE (21:46)
[2023-03-25] MEDS ORDERED: DEXAMETHASONE SOD INJ 4 MG/ML VIAL ONE (21:46)
[2023-03-25] MEDS ORDERED: MoRPHine SULFATE 2 MG/ML CARP ONE (22:11)
[2023-03-25] MEDS ORDERED: KETOROLAC 30 MG/ML VIAL ONE (22:32)
[2023-03-25] MEDS ORDERED: NEOSTIGMINE METHYLSULFATE 1 MG/ML 10ML VIAL ONE (22:32)
[2023-03-25] MEDS ORDERED: GLYCOPYRROLATE 0.2 MG/ML VIAL ONE (22:32)
[2023-03-25] MEDS ORDERED: SUGAMMADEX SODIUM 200 MG/2 ML VIAL IV ONE (22:37)
[2023-03-25] MEDS ORDERED: PHENYLEPHRINE 100MCG/ML 5ML SYR ONE (22:53)
--- NOTE | 2023-03-25 23:15 | Operative Report ---
PG Post Operative Report Pre & Post Diagnosis Operation Date: 03/25/23 21:30 Pre-Op Diagnosis: Acute appendicitis. Post-Op Diagnosis: Acute appendicitis. I identified the patient and participated in the time-out.: Yes Procedure Operation Date: 03/25/23 21:30 Actual Procedures p Laparoscopic Appendectomy - Karlee Lindsey DO Surgeon Karlee Lindsey DO Loan And Credit Manager HATTIE Collins Estimated Blood Loss 10 Findings Consistent with Post-Op Diagnosis Thickened, inflamed appendix and mesoappendix. Areas of purulent fibrinous material covering the appendix, ileocecal fat pad and the base of the cecum. The cecum itself was not inflamed. Specimens Appendix and mesoappendix Anesthesia Type General Complications None Indications Acute appendicitis confirmed by CT Description of Procedure Informed consent was obtained prior to the procedure. Procedure and site were confirmed in the preoperative holding area. The patient was brought back to the operating room and placed on the operating room table in supine position. The patient was connected to cardiac and O2 monitoring and administered general anesthesia. She was intubated. A Jones catheter was inserted. The patient's abdomen was prepped and draped in typical sterile fashion. Local anesthetic was injected into the skin at the infraumbilical region and a small stab incision was made with an 11 blade. A towel clamp was used to elevate the fascia and a Veress needle was inserted to access the intra- abdominal space. CO2 insufflation was initiated and pneumoperitoneum was achieved to a goal pressure of 15 mmHg. A 5 mm trocar was inserted under direct visualization using a 5 mm Visiport. The skin at the left lower quadrant was also anesthetized and and a 1 cm incision was made with an 11 blade. An 11 mm trocar was inserted at this location under direct visualization. The skin was then anesthetized at the supraumbilical area where a stab incision was made with an 11 blade and a 5 mm trocar was inserted under direct visualization. There was no injury noted by the insertion of the Veress needle or any of the trocars. The remainder of the abdomen was superficially inspected and did not appear to contain any other pathology. A normal-appearing gallbladder noted at the right upper quadrant. The appendix was identified at the right lower quadrant covered in fibrinous exudate. The ileocecal fat pad and terminal ileum were adhesed to the inflamed mesoappendix. A suction feather shaper was used to gently tease the ileocecal fat pad and terminal ileum away from the appendix. The base of the appendix was exposed. A [place] dissector was used to gain adequate exposure of the base of the appendix in preparation for stapling. The base of the appendix was stapled with a purple loaded 45 mm Endo LIANA stapler. The appendiceal artery and mesoappendix was then ligated using a navarro loaded 60 mm Endo LIANA stapler. The staple lines were examined for hemostasis. There was no bleeding at either staple line and the staple lines appeared viable and intact. The area was gently irrigated and suctioned. The appendix was placed in an Endo Catch bag and removed from the abdomen. There was a small amount of bleeding from the abdominal wall muscle from the 5 mm infraumbilical port site that was noted in the early part of the case. This was investigated using the camera from the view of the supraumbilical port site and the port site was hemostatic at the end of the case. A small amount of blood and irrigant that had run down to the pelvis was suctioned away. All port sites and the staple lines were checked again for hemostasis. Once hemostasis was confirmed, omentum was used to cover the staple lines and CO2 insufflation was discontinued. The instruments were removed from the abdomen and excess air was evacuated. Trocars were removed as well. The fascia at the left lower quadrant 11 mm trocar site was closed with 0 Vicryl suture. The skin incisions were closed with 4-0 Vicryl. The abdomen was wiped clean with a saline soaked lap pad and then dried. These were sealed with Dermabond and covered with 2 x 2 gauze dressings once they were dry. Dressings were secured in place with small Tegaderms. The Jones catheter was removed at the end of the case. The patient had me just under 200 cc of urine during this case. The patient was awakened from anesthesia and extubated. She tolerated the procedure well and was transferred to recovery in stable condition. I attest to the content of the Intraoperative Record and any orders documented therein. Any exceptions are noted below.
--- NOTE | 2023-03-25 23:24 | Anesthesiology Progress Note ---
Date of Service March 25, 2023 Anesthesia Post Procedure Vital Signs Vital Signs: Temp Pulse Pulse Resp BP BP Pulse Ox 03/25/23 23:23 36.8 C 103 H 18 112/63 95 03/25/23 23:13 36.8 C 108 H 22 121/71 98 03/25/23 23:03 36.9 C 113 H 20 117/66 95 03/25/23 19:18 98 H 22 154/90 H 98 03/25/23 17:46 97 03/25/23 17:27 99 H 16 108/77 96 03/25/23 17:29 36.9 C 114 H 18 114/71 97 O2 Del Method O2 Flow Rate 03/25/23 23:23 Room Air 03/25/23 23:13 Room Air 03/25/23 23:03 Nasal Cannula 3 03/25/23 19:18 Room Air 03/25/23 17:46 Room Air 03/25/23 17:27 03/25/23 17:29 Room Air Transfer of Care Handoff Completed per policy Notes Mental Status: alert / awake / arousable Patient Amnestic to Procedure: Yes Nausea / Vomiting: adequately controlled Pain: adequately controlled Airway Patency, RR, SpO2: stable & adequate BP & HR: stable & adequate Hydration State: stable & adequate Anesthetic Complications: no major complications apparent
[2023-03-26] MEDS: LACTATED RINGER'S 1,000 ML IV SCH ×3 (00:22→17:52)
[2023-03-26] MEDS: PIPERACILLIN/TAZOBACTAM 4.5 GM in DEXTROSE 5% 100 ML IV SCH ×3 (01:46→17:51)
[2023-03-26 06:40] LABS: Hematocrit (blood only) 31.4 % (37.0-47.0); Hemoglobin 10.6 g/dl (12.0-16.0); Mean Corpuscular Hemoglobin 29.6 pg (25.0-34.0); Mean Corpuscular Hgb Conc 33.8 g/dL (32.0-36.0); Mean Corpuscular Volume 87.7 fL (80.0-100.0); Mean Platelet Volume 10.2 fL (9.4-12.4); Platelet Count 208 K/uL (130-400); RDW Coefficient of Variation 14.1 % (11.5-14.5); Red Blood Count 3.58 M/uL (4.20-5.40); White Blood Count 11.99 K/ul (4.8-10.8)
[2023-03-26 06:52] LABS: BUN Creatinine Ratio 20.6 (10-20); Calcium 8.9 mg/dl (8.6-10.3); Creatinine Clr Calc Pharmacy 70.1 ml/min; Est GFR (African American) 103.4 ml/min; Est GFR (Non-African American) 89.2 ml/min; Potassium 4.4 mmol/L (3.5-5.1)
[2023-03-26 07:07] LABS: Basophils # (auto) 0.01 K/uL (0-0.2); Basophils % (auto) 0.1 %; Immature Granulocytes # (auto) 0.06 K/uL (0.01-0.20); Immature Granulocytes % (auto) 0.5 %; Lymphocytes # (auto) 0.35 K/uL (1.2-3.4); Lymphocytes % (auto) 2.9 %; Monocytes # (auto) 0.11 K/uL (0.11-0.59); Monocytes % (auto) 0.9 %; Neutrophils # (auto) 11.46 K/uL (1.40-6.50); Neutrophils % (auto) 95.6 %; Ovalocytes 1+
--- NOTE | 2023-03-26 08:08 | Surgery Progress Note ---
I have seen and examined this patient and discussed the case with the surgical PA. I agree with the plan. For now, I will keep the patient at clear liquids as she says she is not quite passing flatus. She is ambulating well. We will f/u am labs. Date of Service March 26, 2023 Assessment & Plan (1) Acute appendicitis: Plan: S/p laparoscopic appendectomy WBC 11.9(16), Hbg 10.6(13.9), Cr: 0.6. Vital signs are stable Pt is feeling well. no nausea/vomiting. pain is well controlled abdomen soft, non distended, mild soreness in RLQ to palpation. Incisions c/d/i Will start advancing diet as she tolerates Continue IV zosyn while in house Hospitalists on board for consult w/ history of RA Possible dispo later today vs tomorrow. will f/u with pt F/U in clinic with Dr. Lindsey within 2 weeks time Admission and Anticipated Discharge Date Admission Date: March 25, 2023 Subjective Patient reports she is feeling well this AM. No nausea/vomiting. Is thirsty. Pain is much improved. Physical Exam Physical Exam: awake/alert Constitutional: no distress Respiratory: normal respiratory effort Gastrointestinal (Abdomen): Inspection/Auscultation: + abdominal surgical incision (c/d/i; no drainage); abdomen not distended Percussion/Palpation: + abdomen tender (expected mild RLQ discomfort) and abdomen soft Results & Data Vital Signs (Past 12 Hours) Vital Signs Temp Pulse Pulse Resp BP Pulse Ox O2 Del Method 03/26/23 07:47 36.5 C 69 16 101/66 Room Air 03/26/23 02:55 36.8 C 78 16 108/72 94 Room Air 03/26/23 01:54 36.6 C 87 18 116/77 94 Room Air 03/26/23 00:55 36.6 C 90 18 105/67 93 Room Air 03/26/23 00:21 36.6 C 101 H 16 116/60 96 Room Air 03/26/23 00:25 36.8 C 99 H 16 101/68 94 Room Air 03/25/23 23:55 36.8 C 99 H 16 100/68 92 Room Air 03/25/23 23:23 36.8 C 103 H 18 112/63 95 Room Air 03/25/23 23:13 36.8 C 108 H 22 121/71 98 Room Air 03/25/23 23:03 36.9 C 113 H 20 117/66 95 Nasal Cannula O2 Flow Rate 03/26/23 07:47 03/26/23 02:55 03/26/23 01:54 03/26/23 00:55 03/26/23 00:21 03/26/23 00:25 03/25/23 23:55 03/25/23 23:23 03/25/23 23:13 03/25/23 23:03 3 PG Care Time/CCT Total # of Minutes Spent Total Time Spent with Patient: Total time spent is greater than 50% in coordination of care (as documented) at patient's floor/unit and/or counseling patient: Coding Level of Care Code 61335 Post Operative Follow-Up Diagnoses Acute appendicitis K35.80
--- NOTE | 2023-03-26 08:30 | XRay Report ---
XR chest 1V portable CLINICAL HISTORY: pre-op TECHNIQUE: Single frontal radiograph of the chest was obtained. Comparison: Comparison is made to chest radiograph 02/13/2023 FINDINGS: A loop recorder recently placed pacemaker is unchanged. Cardiomegaly is noted. The aortic arch is mona cified. Right reverse shoulder arthroplasty is seen. The lungs are clear. No evidence of pleural effu lindy or pneumothorax. IMPRESSION: No acute chest disease. ACT 112: Negative or not required by law. Electronically signed by: Francisco Agustin M.D. 03/26/2023 8:28 AM
[2023-03-26] MEDS ORDERED: oxyCODONE HCL IR 5 MG TAB (IMMEDIATE RELEASE) PO PRN ×2 (10:56)
--- NOTE | 2023-03-26 11:45 | Electrocardiogram Report ---
Test Reason : Blood Pressure : / mmHG Vent. Rate : 098 BPM Atrial Rate : 098 BPM P-R Int : 132 ms QRS Dur : 088 ms QT Int : 378 ms P-R-T Axes : 071 068 083 degrees QTc Int : 482 ms Normal sinus rhythm Normal ECG When compared with ECG of 30-JUN-2022 12:36, Nonspecific T wave abnormality now evident in Lateral leads Confirmed by Nishant Chance ([id number]) on 03/26/2023 11:44:53 AM Referred By: REFERRED SELF Confirmed By:Nishant Chance
--- NOTE | 2023-03-26 23:10 | Hospitalist Consultation ---
Date of Consultation March 26, 2023 Assessment & Plan (1) Acute appendicitis: per primary service. Currently no signs of sepsis. Likely will discharge in AM. (2) Rheumatoid arthritis: stable. continue current management. (3) Hypertension: BP at goal. Plan Medicine will sign off, please contact us if there are any questions or concerns. History of Present Illness Attending Physician: Karlee Lindsey DO Allergies Allergy/AdvReac Type Severity Reaction Status Date / Time leflunomide Allergy Severe DIARRHEA Verified 03/26/23 19:21 AND VOMITING chloroquine Allergy Unknown Unknown Verified 03/26/23 19:21 hydroxychloroquine Allergy Unknown DIARRHEA Verified 03/26/23 19:21 [From Plaquenil] AND VOMITING SEA Inhibitors AdvReac cough Verified 03/26/23 19:21 Home Medications Medication Instructions Recorded Confirmed Type B-complex with vitamin C 1 tab PO QAM 10/11/18 03/26/23 History celecoxib 200 mg capsule (Celebrex) 200 mg PO QAM 10/11/18 03/26/23 History cholecalciferol (vitamin D3) 25 1,000 units PO QAM 10/11/18 03/26/23 History mcg (1,000 unit) capsule famotidine 40 mg tablet (Pepcid) 40 mg PO QAM 10/11/18 03/26/23 History methotrexate sodium 2.5 mg tablet 12.5 mg PO WK 10/14/18 03/26/23 History cyclosporine 0.05 % eye drops in a 1 drp ophthalmic (eye) BID 01/03/19 03/26/23 History dropperette (Restasis) acetaminophen 650 mg 1,300 mg PO Q12H PRN Pain 07/05/19 03/26/23 History tablet,extended release (Tylenol Arthritis Pain) diphenhydramine HCl 25 mg capsule 25 mg PO HS PRN Sleep 08/21/19 03/26/23 History (Sleep Aid (diphenhydramine)) melatonin 5 mg tablet 5 mg PO HS PRN Sleep 08/21/19 03/26/23 History rituximab 10 mg/mL 10 mg IV Q6MO 09/01/19 03/26/23 History concentrate,intravenous (Rituxan) folic acid 1 mg tablet 3 mg PO DAILY Hair Loss #120 tabs 02/15/22 03/26/23 History cyclobenzaprine 10 mg tablet 10 mg PO TID PRN muscle spasm #90 01/16/23 03/26/23 Rx tabs aspirin 81 mg capsule 81 mg PO QAM 02/09/23 03/26/23 History fluoxetine 40 mg capsule (Prozac) 40 mg PO QPM 02/09/23 03/26/23 History pilocarpine HCl 5 mg tablet 5 mg PO QPM 02/09/23 03/26/23 History olmesartan 40 mg tablet 40 mg PO DAILY #30 tabs 03/21/23 03/26/23 Rx Patient History Medical History Bilateral hand pain Cervical pain D/T RA Hammer toe of second toe of right foot History of stroke 12/2018 DURING SLEEP/BALANCE ISSUES-WENT TO [facility] ER-CT SCAN CLEARED [facility] NEXT COUPLE DAYS-"CT SCAN MULTIPLE STROKES DURING SLEEP-PROBLEMS WITH BALANCE"-F/U DR CLAUDIO MEDEIROS NO NEW ISSUES-JUST BALANCE ISSUES PERSIST Hypertension Hyponatremia follows with Dr. Villa Rheumatoid arthritis Scoliosis Sensorineural hearing loss of both ears Sjogren's disease Tinnitus, bilateral Surgical History (Updated 03/26/23 @ 08:28 by Zaida Lezama, VERITO) H/O elbow surgery H/O hand surgery R/L History of elbow surgery Right ulnar nerve transposition surgery History of esophagogastroduodenoscopy (EGD) History of hand surgery Bilateral MCP athroplasty History of knee replacement bilateral History of laparoscopic appendectomy (03/25/22) Laparoscopic Appendectomy - Karlee Lindsey DO History of loop recorder Hx of shoulder surgery Right shoulder reverse total arthroplasty 06/06/[address] Rm in [facility] S/P knee replacement Family History Father Myocardial infarction Stroke Mother Neoplasm of ovary Family hx of colon cancer Ovarian cancer Brother Emphysema of lung Other Cancer Heart disease Hypertension Lung disease Denies family history of Prostate cancer Breast cancer Colorectal cancer Social History Smoking Status: Never smoker Second Hand Exposure: No; Do You Dip or Chew Tobacco: No; Hx Alcohol Use: No Hx Substance Use: No Preferred Language: Sudanese Communication Ability: Effective Visual Impairment: Limited Hearing Ability: Normal Personal Lines Underwriter Required: No Beliefs That Will Affect Care: None marital status: Current Living Situation: Spouse Current Living Situation Comment: with current occupational status: retired Other Information That Helps Us Care for You: No Feels Safe at Home: Yes Safety Concerns: Feels Safe At This Time Childhood Exposure to Second-Hand Smoke: No Dental Care, Regularly: Yes Physical Activity Frequency: Other Physical Activity Frequency Comment: Exercise limited by physical condition Seatbelt Use: always Sunscreen Use: Yes Assistive Devices: Cane and Wheelchair Results & Data Results & Data Vital Signs (Past 12 Hours) Vital Signs Temp Pulse Resp BP Pulse Ox O2 Del Method 03/26/23 19:32 37.0 C 69 16 124/70 94 Room Air 03/26/23 15:26 36.8 C 65 17 115/67 97 Room Air PG Care Time/CCT Total # of Minutes Spent Total Time Spent with Patient: Total time spent is greater than 50% in coordination of care (as documented) at patient's floor/unit and/or counseling patient: Coding Diagnoses Acute appendicitis K35.80 Rheumatoid arthritis M06.9 Hypertension I10
[2023-03-27] MEDS ORDERED: Nursing to Pharmacy Communication SCH (01:15)
[2023-03-27] MEDS: PIPERACILLIN/TAZOBACTAM 4.5 GM in DEXTROSE 5% 100 ML IV SCH ×2 (02:05→10:50)
[2023-03-27] MEDS: LACTATED RINGER'S 1,000 ML IV SCH (04:10)
[2023-03-27 07:55] LABS: Basophils # (auto) 0.05 K/uL (0-0.2); Basophils % (auto) 0.8 %; Eosinophils # (auto) 0.06 K/uL (0-0.50); Hematocrit (blood only) 29.4 % (37.0-47.0); Hemoglobin 9.6 g/dl (12.0-16.0); Immature Granulocytes # (auto) 0.02 K/uL (0.01-0.20); Immature Granulocytes % (auto) 0.3 %; Lymphocytes # (auto) 0.88 K/uL (1.2-3.4); Lymphocytes % (auto) 14.2 %; Mean Corpuscular Hemoglobin 29.4 pg (25.0-34.0); Mean Corpuscular Hgb Conc 32.7 g/dL (32.0-36.0); Mean Corpuscular Volume 89.9 fL (80.0-100.0); Mean Platelet Volume 10.3 fL (9.4-12.4); Monocytes # (auto) 0.54 K/uL (0.11-0.59); Monocytes % (auto) 8.7 %; Neutrophils # (auto) 4.66 K/uL (1.40-6.50); Platelet Count 216 K/uL (130-400); RDW Coefficient of Variation 14.1 % (11.5-14.5); RDW Standard Deviation 46.1 fL (36.4-46.3); Red Blood Count 3.27 M/uL (4.20-5.40); White Blood Count 6.21 K/ul (4.8-10.8)
[2023-03-27 08:18] LABS: BUN Creatinine Ratio 12.5 (10-20); Creatinine Clr Calc Pharmacy 74.4 ml/min; Est GFR (African American) 105.5 ml/min; Potassium 3.4 mmol/L (3.5-5.1)
--- NOTE | 2023-03-27 10:46 | Surgery Progress Note ---
Patient looks great and feels well. Continues to walk several laps. Denies N/V, abdominal pain, lightheadedness or dizziness. Is passing flatus and tolerating a low fiber diet. Afebrile and HD stable. I agree with the plan for discharge to home with outpatient follow up and no antibiotics. Date of Service March 27, 2023 Assessment & Plan (1) Acute appendicitis: Plan: s/p laparoscopic appendectomy wbc 6, hbg 9.6(10.6). vital signs are stable pt tolerating low fiber. will d/c IVF Pain controlled, abdomen soft, non tender, incisions c/d/i plan for discharge to home later today. no need for further abx. dispo instructions reviewed, f/u in clinic with dr. esquivel within 2 weeks Admission and Anticipated Discharge Date Admission Date: March 25, 2023 Subjective Patient is feeling well. Offers no complaints. Pain is tolerable. She is passing flatus. Advancing diet without issues. No n/v. Physical Exam Physical Exam: awake/alert, no distress Respiratory: normal respiratory effort Cardiovascular: Rate/Rhythm: regular rate Gastrointestinal (Abdomen): Inspection/Auscultation: + abdominal surgical incision (c/d/i with surgical dressings, mild bruising noted to inferior incisions); abdomen not distended Percussion/Palpation: abdomen soft; abdomen nontender Results & Data Vital Signs (Past 12 Hours) Vital Signs Temp Pulse Resp BP Pulse Ox O2 Del Method 03/27/23 07:48 36.7 C 62 16 156/76 H 98 Room Air 03/26/23 23:41 36.9 C 64 16 129/75 95 Room Air PG Care Time/CCT Total # of Minutes Spent Total Time Spent with Patient: Total time spent is greater than 50% in coordination of care (as documented) at patient's floor/unit and/or counseling patient: Coding Level of Care Code 62464 Post Operative Follow-Up Diagnoses Acute appendicitis K35.80
--- NOTE | 2023-03-28 15:17 | Discharge Summary ---
Date of Service March 27, 2023 Admission HPI Per Admitting Provider This is a 67-year-old female who presented to the emergency department secondary to abdominal pain. Patient notes that the pain began the evening of 03/24/2023 and is confined mainly to the right lower quadrant. She notes that the pain does not radiate. She notes the pain is worse with certain movements and she does not really identify any palliative factors other than analgesics administered in the emergency department. She says that she has had sweats at times but admits she did not take her temperature. She has had 1 episode of nausea and vomiting. She says that she has never had any abdominal surgeries in the past. She notes that her most recent oral intake was yesterday and specifically notes she did not eat or drink anything today. Thus far in the emergency department the patient has had labs and imaging which I independent reviewed in the emergency department she had a chest x-ray that did not show any evidence of pneumonia. A CT scan of the abdomen and pelvis showed the patient had findings concerning for an appendicitis as there was fat stranding and wall thickening noted of the appendix. The appendix was measured to a size of about 10 mm without evidence of a perforation or abscess. Labs include a CBC were white blood cell count was elevated at 13.2. Hemoglobin, hematocrit, and platelet count were normal. Chemistry profile showed sodium was 130. Her potassium was 4.0. BUN and creatinine were 15 and 0.8. There is no elevation of her LFTs or lipase. A urinalysis was not indicative of infection. A COVID test was noted to be negative. An EKG showed normal sinus rhythm wi thout changes indicative of acute ischemia I question the patient about her activities of daily living and she says that her mobility is somewhat limited due to her history of rheumatoid arthritis. The patient says she is currently in the middle of a family move and she has been able to participate in this process. She notes that with her day-to-day activities she does not get chest pain or develops shortness of breath that limits her activity. Patient does note that she had a history of a stroke approximately 4 years ago. She notes that she woke up with neurologic deficits 1 morning. I questioned her about these deficits and she specifically denied any visual changes or visual loss. She denied any garbled or slurred speech. She just noted that her balance and coordination were off and she had slight weakness of her right upper extremity. She notes that she has made a near 100% recovery but does have some slight weakness of her right upper extremity. No FHX of colon cancer and she has never had a colonoscopy in the past. She says she is scheduled for a colonoscopy next month. No prior GI symptoms. At the time of my interview she was resting comfortably in bed and she was in no distress Principal Diagnosis acute appendicitis rheumatoid arthritis Discharge Exam awake/alert, no distress Respiratory normal respiratory effort Cardiovascular Rate/Rhythm: regular rate Gastrointestinal (Abdomen) Inspection/Auscultation: + abdominal surgical incision (c/d/i with surgical dressings, mild bruising noted to inferior incisions); abdomen not distended Percussion/Palpation: abdomen soft; abdomen nontender Discharge Data Allergies Allergy/AdvReac Type Severity Reaction Status Date / Time leflunomide Allergy Severe DIARRHEA Verified 03/26/23 19:21 AND VOMITING chloroquine Allergy Unknown Unknown Verified 03/26/23 19:21 hydroxychloroquine Allergy Unknown DIARRHEA Verified 03/26/23 19:21 [From Plaquenil] AND VOMITING SEA Inhibitors AdvReac cough Verified 03/26/23 19:21 Consultations 03/26/23 00:17 Consult Hospitalist Routine Procedures Performed Operation Date: 03/25/23 21:30 Actual Procedures p Laparoscopic Appendectomy - Karlee Lindsey, Ordered Studies 03/25/23 17:46 CT abd pelvis IV con only Stat Hospital Course (1) Acute appendicitis: This is a 67yF who presented to the [facility] ED on 03/25/23 with abdominal pain. Workup in the ED showed a WBC of 13.[address] a/p concerning for acute appendicitis. The patient was tender to palpation in the RLQ. Patient made NPO with IVF and booked for the OR. On 5 the patient went to the OR with Dr. Lindsey for a laparoscopic appendectomy. The patient tolerated the procedure well, see operative report for full details. Post operatively the patient's diet was advanced slowly as tolerated, pain managed on prn meds, and incisions clean/dry/intact. On POD#2 the patient was deemed stable for discharge to home. Total Time Total Time Spent Total Time Spent (In Minutes): 10 Discharge Plan Discharge Items Patient Disposition: Home - Self-Care Reason For Visit: APPY Discharge Diagnosis: laparoscopic appendectomy Activity: Per Instructions section Lifting: No more than 10 pounds Bathing Comment: may shower; no soaking in tubs/pools x2 weeks Exercise/Sports: Wait until after follow-up appointment Driving/Machine Use: no driving while taking narcotics for pain Non-emergency contact: Surgeon Call non-emergency contact if: you have any medication questions, your symptoms worsen, your pain is not controlled, your pain is concerning for you, you have a fever, your temperature is above 101.5, your wound has increased redness, your wound has increased drainage and your wound pain has increased Follow-up/Referrals: Sydnee Mckeon MD [Primary Care Provider] - Karlee Lindsey DO [Physician] - 04/09/23 2:00 pm (Please call to schedule follow up in clinic within 2 weeks ) Diet: Low Fiber Addtl Attending Provider Instructions: You may remove your outer surgical dressings 03/28/23 and shower. Pending Studies at Discharge: Yes Studies:: surgical pathology Stand-Alone Forms: My [facility], Smoking Cessation Medications and DC Order Prescriptions: Continued celecoxib [Celebrex] 200 mg capsule 200 mg PO QAM famotidine [Pepcid] 40 mg tablet 40 mg PO QAM cholecalciferol (vitamin D3) 1,000 unit capsule 1,000 units PO QAM B-complex with vitamin C tablet extended release 1 tab PO QAM methotrexate sodium 2.5 mg tablet 12.5 mg PO WK Rx Instructions: FRIDAYS cyclobenzaprine 10 mg tablet 10 mg PO TID PRN (Reason: muscle spasm) Qty: 90 2RF olmesartan 40 mg tablet 40 mg PO DAILY Qty: 30 3RF folic acid 1 mg tablet 3 mg PO DAILY Qty: 120 cyclosporine [Restasis] 0.05 % dropperette 1 drp ophthalmic (eye) BID acetaminophen [Tylenol Arthritis Pain] 650 mg Tablet Extended Release 1,300 mg PO Q12H PRN (Reason: Pain) diphenhydramine HCl [Sleep Aid (diphenhydramine)] 25 mg Capsule 25 mg PO HS PRN (Reason: Sleep) melatonin 5 mg Tablet 5 mg PO HS PRN (Reason: Sleep) Rituxan 10 mg/mL concentrate 10 mg IV Q6MO Rx Instructions: Q 6 MONTHS-LAST DOSE 06/2019 fluoxetine [Prozac] 40 mg capsule 40 mg PO QPM pilocarpine HCl 5 mg Tablet 5 mg PO QPM aspirin 81 mg Capsule 81 mg PO QAM Discharge Orders: Discharge Order (Routine); Ordered 03/27/23 Ordered By: Agata Reyes Admission Data Admit Date/Time: 03/25/23 22:57 Attending Provider: Karlee Lindsey Admit Provider: Karlee Lindsey Primary Care Provider: Sydnee Mckeon V. Other Providers: Vito Bass Other Interventions: Discharge Summary Assessment (RN) Last Done: 03/27/23 12:19 Coding Level of Care Code 85649 IN/OBS DISCH 30 MIN/LESS Diagnoses Acute appendicitis K35.80
== END 2023-03-27 13:19 | disposition home or self-care (01) | DRG 342 ==
LOC: ED 17:27 → OR 20:54 → 3W 22:57

== ENCOUNTER 2025-05-25 12:16 | Inpatient (IN) ==
[2025-05-25] MEDS: SODIUM CHLORIDE 0.9% 1,000 ML IV SCH (13:18)
[2025-05-25 13:55] LABS: Hematocrit (blood only) 29.3 % (37.0-47.0); Hemoglobin 9.3 g/dl (12.0-16.0); Mean Corpuscular Hemoglobin 28.5 pg (25.0-34.0); Mean Corpuscular Volume 89.9 fL (80.0-100.0); Platelet Count 280 K/uL (130-400); RDW Standard Deviation 52.7 fL (36.4-46.3); Red Blood Count 3.26 M/uL (4.20-5.40); White Blood Count 8.58 K/ul (4.8-10.8)
[2025-05-25 14:09] LABS: Alanine Aminotransferase 10.0 U/L (7-52); Alkaline Phosphatase 85.0 U/L (34-104); Anion Gap 9.0 (3-11); Bilirubin,Total 0.7 mg/dl (0.2-1.0); Blood Urea Nitrogen 26.0 mg/dl (6-23); Calcium 9.9 mg/dl (8.6-10.3); Carbon Dioxide 24.0 mmol/L (21-32); Chloride 98.0 mmol/L (98-107); Creatinine Clr Calc Pharmacy 28.3 ml/min; Glucose 113.0 mg/dl (70-99(Fasting)); Magnesium 1.6 mg/dl (1.7-2.4); Potassium 3.8 mmol/L (3.5-5.1); Sodium 131.0 mmol/L (136-145); Total Protein 6.7 gm/dl (6.0-8.3)
[2025-05-25 14:51] LABS: Dohle Bodies 1+; Hypersegmented Neutrophils 1+; Immature Granulocytes # (auto) 0.67 K/uL (0.01-0.20); Immature Granulocytes % (auto) 7.8 %; Ovalocytes 1+; Polychromasia 1+
[2025-05-25] MEDS: MAGNESIUM SULFATE / D5W 1 GM/100 ML BAG IV STA (15:01)
[2025-05-25] MEDS: SODIUM CHLORIDE 0.9% 1,000 ML IV ONE (15:01)
[2025-05-25] MEDS: cefTRIAXone SODIUM 2,000 MG/50 ML BAG IV STA (16:35)
[2025-05-25 17:02] LABS: Appearance Urine Cloudy (Clear); Bacteria Urine Automated 4+ (None Seen); Epithelial Cell Urine Auto 0-2 /hpf (0-2); Glucose Urine UA Negative (Negative); RBC Urine Automated 0-2 /hpf (0-2); WBC Urine Automated 21-50 /hpf (0-5)
--- NOTE | 2025-05-25 17:04 | Emergency Department Note ---
Impression & Plan Fatigue, Urinary incontinence, RAKESH (acute kidney injury) ED Provider Note ED Provider Note NAME: LY ELIAS AGE:69 SEX: Female : 1955 ARRIVES VIA: private vehicle INFORMANT: Patient ED PROVIDER(s): Marcella Chery DO CHIEF COMPLAINT: fatigue, urinary incontinence and urgency HPI: This is a 69 female who presents emerged family due to concern for 2 days of increased fatigue, decreased appetite, urinary urgency and occasional incontinence. Patient with similar episodes a few weeks ago and was given a course of antibiotics for urinary tract infection. She states she felt improved until her symptoms began again more recently. She denies fevers or chills, abdominal pain, increased pain, nausea or vomiting. She does admit to decreased oral intake and has had difficulty staying hydrated. No prior hx of UTIs. No recent medication changes. No change in bowel movements. PAST MEDICAL HISTORY:See Below PAST SURGICAL HISTORY:See Below FAMILY HISTORY:See Below SOCIAL HISTORY:See Below HOME MEDICATIONS:See Below ALLERGIES:See Below VITALS:See Below PHYSICAL EXAMINATION: GENERAL: alert, well appearing, well nourished, no distress, non-toxic EYE EXAM: normal conjunctiva, PERRL and EOM's grossly intact OROPHARYNX: no exudate, no erythema, lips, buccal mucosa, and tongue normal and mucous membranes are dry NECK: supple, no nuchal rigidity, no adenopathy, non-tender LUNGS: Clear to auscultation. Normal chest wall mechanics, no w/r/r HEART: no murmurs, S1 normal and S2 normal ABDOMEN: abdomen soft, non-tender, normo-active bowel sounds, no masses, no rebound or guarding. SKIN: no rashes, petechiae, orbruising UPPER EXTREMITIES: upper extremities are grossly normal. FROM, nml pulses b/l. LOWER EXTREMITIES: No pitting edema. FROM, nml pulses b/l. Changes consistent with RA noted to b/l hands. NEURO EXAM: Normal sensorium, cranial nerves II-XII grossly intact, normal speech, no facial droop,nogross weakness of arms, no gross weakness of legs. Gross sensation intact. No ataxia. Vital Signs: reviewed and remarkable Differential Diagnosis: UTI, Urethritis, Pyelonephritis, Hyperglycemia, Yeast, Hemorrhagic Cystitis, bladder stone, bladder polyp, amongst other pathologies entertained. MEDICAL DECISION MAKING: THis is a 69 yo female who presents to the ER with concern for urinary symptoms, fatigue, and decreased appetite. She was afebrile and VS stable. Labs drawn and sent, IV established, EKG performed and interpreted at bedside, and patient placed on telemetry. She was started on IVF. Patient noted to have an elevated procal, and RAKESH on labs. Patient required 2 L of IVF before she was able to produce a urine specimen which ultimately suggested infection. She was given IV Rocephin. She did receive >30 ml/kg based on ABW. Patient with increased risk of bacteremia/sepsis due to RA meds. Renal US added and ultimately reassuring. I suspect her RAKESH is more likely from her dehydration and less likely from pyelo or obstructive uropathy. CAse discussed with hospitalist team for additional evaluation/mgmt. Consultation(s): 1739: Discussed with GARRY Francis hospitalist team, for additional evaluation and management. ER Treatment Provided: See below Diagnostics Interpreted By Me: -ECG: nsr at 82, nml axis, nml intervals, no acute St/T wave changes -Cardiac Monitoring: An order was placed for continuous cardiac monitoring. The monitor shows a rate of 92 with normal sinus rhythm. -Laboratory studies: As stated above and show below. -Imaging studies: US renal: no stones, no hydro Triage Nursing Note Reviewed Prior/Outside Records Reviewed Past Med/Surg History Problem List (Updated 05/26/25 @ 09:45 by Penny Babb PA-C) Bacteremia Urinary tract infection Sepsis RAKESH (acute kidney injury) (Acute) Urinary incontinence (Acute) Fatigue (Acute) Menopause Family history of colon cancer Abnormal finding on lung imaging Immunosuppressed status COPD (chronic obstructive pulmonary disease) Tingling of left upper extremity Left shoulder pain Multiple thyroid nodules Right thyroid nodule Low back pain Hyperlipidemia Health care maintenance Colon cancer screening Hammer toe Ringing in ears Hearing decreased Myalgia due to statin SOB (shortness of breath) on exertion (Acute) Fatigue (Chronic) Anemia Hyponatremia Mood disorder (Chronic) Bilateral swelling of feet and ankles (Acute) Ataxia (Acute) Gait disturbance (Acute) Scoliosis (Chronic) Tinnitus, bilateral Sensorineural hearing loss of both ears Rheumatoid arthritis (Chronic) Hypertension (Acute) History of stroke (Chronic) 12/2018 during sleep/balance issues, went to [place] ER-CT scan clear; went to [facility] in the next few days "CT scan showed mulitple strokes during her sleep-causing problems w/balance"; f/u shira Pena>"balance issues remain" Bilateral hand pain (Chronic) Cervical pain (Chronic) d/t RA, ROM "is ok" Medical History Menopause Ischemic stroke History of COVID-2019--no symptoms now Sjogren's disease Hyponatremia follows with Dr. Villa Scoliosis Surgical History Hx of left cataract extraction History of foot surgery right hammertoe 02/21/23 @ [place] History of laparoscopic appendectomy (03/25/22) Laparoscopic Appendectomy - Karlee Lindsey DO History of loop recorder ~2018, placed due to having strokes during her sleep; f/u shira rosas>getting checked 12/20/23 History of esophagogastroduodenoscopy (EGD) History of elbow surgery Right ulnar nerve transposition surgery Hx of shoulder surgery Right shoulder reverse total arthroplasty 06/06/[address] Rm in [place] History of hand surgery 2000 and 2001 Bilateral MCP athroplasty History of knee replacement bilateral Family History Father Myocardial infarction Stroke Mother Family hx of colon cancer Ovarian cancer Neoplasm of ovary Brother Emphysema of lung Other Cancer Heart disease Hypertension Lung disease No family history of adverse response to anesthesia Denies family history of Prostate cancer Breast cancer Colorectal cancer Social History Smoking Status: Never smoker Second Hand Exposure: Yes ('s family "used to"); Do You Dip or Chew Tobacco: No; Hx Alcohol Use: No Hx Substance Use: No Preferred Language: Iranian Communication Ability: Effective Visual Impairment: Limited Hearing Ability: Use of Hearing Aid Behavioral Sciences Instructor Required: No Beliefs That Will Affect Care: None marital status: Current Living Situation: Spouse Current Living Situation Comment: with current occupational status: retired Feels Safe at Home: Yes Childhood Exposure to Second-Hand Smoke: No Diet: regular caffeine: Yes (1-2 tea daily) Dental Care, Regularly: Yes Physical Activity Frequency: Other Physical Activity Frequency Comment: Exercise limited by physical condition Seatbelt Use: always Sunscreen Use: Yes Assistive Devices: Cane, Denture - Upper, Glasses and Hearing Aid - Right Allergies Allergies Allergy/AdvReac Type Severity Reaction Status Date / Time chloroquine AdvReac Severe diarrhea Verified 05/25/25 15:50 and vomiting hydroxychloroquine AdvReac Severe DIARRHEA Verified 05/25/25 15:50 [From Plaquenil] AND VOMITING leflunomide AdvReac Severe DIARRHEA Verified 05/25/25 15:50 AND VOMITING SEA Inhibitors AdvReac Intermediate cough Verified 05/25/25 15:50 atorvastatin AdvReac Intermediate Muscle Pain Verified 05/25/25 21:20 evolocumab AdvReac Intermediate flu like Verified 05/25/25 21:20 [From Repatha SureClick] symptoms rosuvastatin AdvReac Intermediate Muscle Pain Verified 05/25/25 21:20 Home Meds Home Medications Medication Instructions Recorded Confirmed B-complex with vitamin C 1 tab PO QAM 10/11/18 05/25/25 celecoxib 200 mg capsule (Celebrex) 200 mg PO QAM 10/11/18 05/25/25 cholecalciferol (vitamin D3) 25 1,000 units PO QAM 10/11/18 05/25/25 mcg (1,000 unit) capsule famotidine 40 mg tablet (Pepcid) 80 mg PO BID 10/11/18 05/25/25 methotrexate sodium 2.5 mg tablet 12.5 mg PO WK 10/14/18 05/25/25 cyclosporine 0.05 % eye drops in a 1 drp ophthalmic (eye) BID 01/03/19 05/25/25 dropperette (Restasis) acetaminophen 650 mg 1,300 mg PO Q12H PRN Pain 07/05/19 05/25/25 tablet,extended release (Tylenol Arthritis Pain) diphenhydramine HCl 25 mg capsule 25 mg PO HS PRN Sleep 08/21/19 05/25/25 (Sleep Aid (diphenhydramine)) melatonin 5 mg tablet 5 mg PO HS PRN Sleep 08/21/19 05/25/25 rituximab 10 mg/mL 10 mg IV Q6MO 09/01/19 05/25/25 concentrate,intravenous (Rituxan) folic acid 1 mg tablet 3 mg PO DAILY Hair Loss #120 tabs 02/15/22 05/25/25 aspirin 81 mg capsule 81 mg PO QPM 02/09/23 05/25/25 biotin 10,000 mcg capsule 10,000 mcg PO DAILY 12/19/23 05/25/25 coenzyme Q10 100 mg capsule (Co 100 mg PO DAILY 12/19/23 05/25/25 Q-10) glucosamine sulf dipot 1 cap PO DAILY 12/19/23 05/25/25 chlr,msm,chond 550 mg-C 30 mg-barry 1 mg capsule (Glucosamine Chondroitin) calcium carbonate (Calcium 600) 600 mg PO DAILY 05/25/25 05/25/25 magnesium oxide 400 mg PO DAILY 05/25/25 05/25/25 omega-3 fatty acids 1,000 mg 1,000 mg PO DAILY 05/25/25 05/25/25 capsule zinc gluconate 50 mg tablet 50 mg PO DAILY 05/25/25 05/25/25 Previous Rx's Medication Instructions Recorded cyclobenzaprine 10 mg tablet 10 mg PO TID PRN muscle spasm #90 02/23/25 tabs olmesartan 40 mg tablet 20 mg (1/2 x 40 mg) PO QPM #30 tabs 03/12/25 tramadol 50 mg tablet 50 mg PO TID PRN pain #90 tabs 04/01/25 fluoxetine 20 mg capsule 60 mg (3 x 20 mg) PO QPM #90 caps 04/30/25 ezetimibe 10 mg tablet 10 mg PO DAILY #30 tabs 05/13/25 Results & Data (ED) Vital Signs Vital Signs - 24 hr 05/25/25 15:29 05/25/25 15:59 05/25/25 17:02 Pulse Rate Pulse Rate [Apical] 87 99 H 86 Respiratory Rate 20 20 17 Blood Pressure [Right Arm] 104/62 120/75 143/99 H Blood Pressure Mean [Right Arm] 76 90 113 Pulse Oximetry 100 99 99 Oxygen Delivery Method Room Air Room Air Room Air 05/25/25 17:06 Pulse Rate 85 Pulse Rate [Apical] Respiratory Rate Blood Pressure [Right Arm] Blood Pressure Mean [Right Arm] Pulse Oximetry Oxygen Delivery Method Laboratory Data 05/26/25 06:22 05/26/25 06:22 Lab Results 05/25/25 05/25/25 Range/Units 13:14 16:06 WBC 8.58 (4.8-10.8) K/ul RBC 3.26 L (4.20-5.40) M/uL Hgb 9.3 L (12.0-16.0) g/dl Hct 29.3 L (37.0-47.0) % MCV 89.9 (80.0-100.0) fL MCH 28.5 (25.0-34.0) pg MCHC 31.7 L (32.0-36.0) g/dL RDW Std Deviation 52.7 H (36.4-46.3) fL RDW Coeff of Hortencia 16.2 H (11.5-14.5) % Plt Count 280 (130-400) K/uL MPV 10.1 (9.4-12.4) fL Immature Gran % (Auto) 7.8 % Neut % (Auto) 78.5 % Lymph % (Auto) 7.3 % Johnson % (Auto) 4.9 % Eos % (Auto) 0.5 % Baso % (Auto) 1.0 % Neut # (Auto) 6.73 H (1.40-6.50) K/uL Lymph # (Auto) 0.63 L (1.20-3.40) K/uL Johnson # (Auto) 0.42 (0.11-0.59) K/uL Eos # (Auto) 0.04 (0.00-0.50) K/uL Baso # (Auto) 0.09 (0.00-0.20) K/uL Immature Gran # (Auto) 0.67 H (0.01-0.20) K/uL Hypersegmented Neuts 1+ Dohle Bodies 1+ Polychromasia 1+ Ovalocytes 1+ Sodium 131 L (136-145) mmol/L Potassium 3.8 (3.5-5.1) mmol/L Chloride 98 (98-107) mmol/L Carbon Dioxide 24 (21-32) mmol/L Anion Gap 9 (3-11) BUN 26 H (6-23) mg/dl Creatinine 1.44 H (0.6-1.2) mg/dl Est Cr Clr Drug Dosing 28.3 ml/min eGFR 38.89 BUN/Creatinine Ratio 18.1 (10-20) Glucose 113 H (70-99(Fasting)) mg/dl Lactate 1.5 (0.4-2.0) mmol/L Calcium 9.9 (8.6-10.3) mg/dl Magnesium 1.6 L (1.7-2.4) mg/dl Iron 20 L (35-150) mcg/dl TIBC 298 (250-450) mcg/dl Transferrin 213 (200-360) mg/dl Transferrin % Sat 7 L (15-50) % Ferritin 210.4 (8-388) ng/ml Total Bilirubin 0.7 (0.2-1.0) mg/dl Direct Bilirubin 0.1 (0-0.2) mg/dl AST 15 (13-39) U/L ALT 10 (7-52) U/L Alkaline Phosphatase 85 (34-104) U/L Total Creatine Kinase 12 L (26-192) U/L Troponin I High Sens 8.3 (0-14) pg/ml Total Protein 6.7 (6.0-8.3) gm/dl Albumin 3.6 (3.4-5.0) gm/dl Procalcitonin 2.06 H (0-0.5) ng/ml Urine Color Yellow Urine Appearance Cloudy A (Clear) Urine pH 5.5 (4.5-7.5) Ur Specific [place] 1.015 (1.000-1.030) Urine Protein 1+ H (Negative) Urine Glucose (UA) Negative (Negative) Urine Ketones Trace H (Negative) Urine Blood Negative (Negative) Urine Nitrite Negative (Negative) Urine Bilirubin Negative (Negative) Urine Urobilinogen Negative (Negative) Ur Leukocyte Esterase 1+ H (Negative) Urine WBC (Auto) 21-50 H (0-5) /hpf Urine RBC (Auto) 0-2 (0-2) /hpf U Hyaline Cast (Auto) 6-10 H (0-2) /lpf U Epithel Cells (Auto) 0-2 (0-2) /hpf Urine Bacteria (Auto) 4+ H (None Seen) Urine Comment Enterobacterales (PCR) DETECTED A (NotDetected) E. coli (PCR) DETECTED A (NotDetected) mcr-1 Colistin Res Gene PCR Not Detected (NotDetected) blaIMP Car res Gene PCR Not Detected (NotDetected) KPC-Carbap Res Gene PCR Not Detected (NotDetected) blaNDM Car Res Gene PCR Not Detected (NotDetected) OXA-48 Carbapenem Resis Gene (PCR) Not Detected (NotDetected) blaVIM Car Res Gene PCR Not Detected (NotDetected) CTX-M Gene Resistance (PCR) Not Detected (NotDetected) Bld Cult ID Panel PCR See PCR Comment (NotDetected) Administered Medications Aspirin (Aspirin 81 Mg Ectab) 81 mg PO QPM [facility] Stop: 06/24/25 21:29 Last Admin: 05/25/25 22:15 Dose: 81 mg Documented By: MARQUES Calcium Carbonate (Calcium Carbonate 1250mg Tab) 1 tab PO DAILY ELSY Stop: 06/25/25 08:59 Last Admin: 05/26/25 07:58 Dose: 1 tab Documented By: KIMBERLY Celecoxib (Celebrex 200 Mg Cap) 200 mg PO QAM [facility] Stop: 06/25/25 08:59 Last Admin: 05/26/25 07:58 Dose: 200 mg Documented By: KIMBERLY Ezetimibe (Ezetimibe 10 Mg Tab) 10 mg PO DAILY ELSY Stop: 06/25/25 08:59 Last Admin: 05/26/25 07:58 Dose: 10 mg Documented By: KIMBERLY Famotidine (Famotidine 40 Mg Tablet) 40 mg PO BID [facility] Stop: 06/24/25 21:13 Last Admin: 05/26/25 07:58 Dose: 40 mg Documented By: Admin: 05/25/25 22:15 Dose: 40 mg Documented By: MARQUES Fluoxetine HCl (Fluoxetine Hcl 20 Mg Cap) 60 mg PO QPM [facility] Stop: 06/24/25 21:13 Last Admin: 05/25/25 22:14 Dose: 60 mg Documented By: MARQUES Folic Acid (Folic Acid 1 Mg Tab) 3 mg PO DAILY [facility] Stop: 06/25/25 08:59 Last Admin: 05/26/25 07:57 Dose: 3 mg Documented By: KIMBERLY Pantoprazole Sodium (Pantoprazole 40 Mg Tab) 40 mg PO QAM [facility] Stop: 06/25/25 08:59 Last Admin: 05/26/25 07:58 Dose: 40 mg Documented By: KIMBERLY Vitamin B Complex (Vitamin B Complex Tab) 1 tab PO QAM [facility] Stop: 06/25/25 08:59 Last Admin: 05/26/25 07:58 Dose: 1 tab Documented By: KIMBERLY Vitamin D (Cholecalciferol 25 Mcg (1000 Units) Tab) 25 mcg PO QAM ELSY Stop: 06/25/25 08:59 Last Admin: 05/26/25 07:58 Dose: 25 mcg Documented By: KIMBERLY Discontinued Medications Heparin Sodium (Porcine) (Heparin Sod 5,000 Unit/0.5 Ml Vial) 5,000 units SQ Q12 ELSY Stop: 06/24/25 20:59 Last Admin: 05/25/25 21:15 Dose: Not Given Documented By: MARQUES Sodium Chloride (Nss) 1,000 mls @ 999 mls/hr IV .Q1H1M ELSY Stop: 05/25/25 14:00 Last Infusion: 05/25/25 14:21 Dose: Infused Documented By: Admin: 05/25/25 13:18 Dose: 999 mls/hr Documented By: INDU Sodium Chloride (Nss) 1,000 mls @ 999 mls/hr IV .Q1H1M ONE Stop: 05/25/25 15:14 Last Infusion: 05/25/25 16:06 Dose: Infused Documented By: Admin: 05/25/25 15:01 Dose: 999 mls/hr Documented By: CHRISTOPHER Magnesium Sulfate/Dextrose (Magnesium Sulfate / D5w) 1 gm in 100 mls @ 100 mls/hr IV NOW STA Stop: 05/25/25 15:13 Last Infusion: 05/25/25 16:13 Dose: Infused Documented By: Admin: 05/25/25 15:01 Dose: 100 mls/hr Documented By: CHRISTOPHER Ceftriaxone Sodium (Rocephin) 2,000 mg in 50 mls @ 100 mls/hr IV NOW STA Stop: 05/25/25 15:35 Last Infusion: 05/25/25 17:14 Dose: Infused Documented By: Admin: 05/25/25 16:35 Dose: 100 mls/hr Documented By: CHRISTOPHER Sodium Chloride (Nss) 500 mls @ 80 mls/hr IV .Q6H15M ELSY Stop: 05/26/25 00:14 Last Infusion: 05/26/25 01:01 Dose: Infused Documented By: Admin: 05/25/25 18:30 Dose: 80 mls/hr Documented By: AVM Sodium Chloride (Nss) 1,000 mls @ 80 mls/hr IV .[id number] ELSY Stop: 05/26/25 13:14 Last Infusion: 05/26/25 08:14 Dose: Infused Documented By: Admin: 05/26/25 01:05 Dose: 80 mls/hr Documented By: MARQUES Magnesium Sulfate/Dextrose (Magnesium Sulfate / D5w) 1 gm in 100 mls @ 50 mls/hr IV ONE ONE Stop: 05/25/25 23:13 Last Infusion: 05/26/25 00:13 Dose: Infused Documented By: Admin: 05/25/25 22:10 Dose: 50 mls/hr Documented By: MARQUES Iron Sucrose 300 mg/ Sodium (Chloride) 265 mls @ 176.667 mls/hr IV TODAY@0930 ONE Stop: 05/26/25 10:59 Last Infusion: 05/26/25 11:31 Dose: Infused Documented By: Admin: 05/26/25 09:52 Dose: 176.7 mls/hr Documented By: KIMBERLY Ioversol (Optiray 320 100ml) 92 ml IV ONCE ONE Stop: 05/26/25 10:40 Last Admin: 05/26/25 10:40 Dose: 1 ml Documented By: MONSTER Non-Formulary Medication (Zinc Gluconate) 50 mg PO DAILY ELSY Stop: 06/25/25 08:59 Last Admin: 05/26/25 08:14 Dose: Not Given Documented By: KIMBERLY Ondansetron HCl (Ondansetron Inj 2 Mg/Ml 2 Ml Vial) Confirm Administered Dose 4 mg .ROUTE .STK-MED ONE Stop: 05/25/25 17:49 Last Admin: 05/25/25 17:54 Dose: Not Given Documented By: CHUY Ondansetron HCl (Ondansetron Inj 2 Mg/Ml 2 Ml Vial) 4 mg IV NOW STA Stop: 05/25/25 17:54 Last Admin: 05/25/25 17:54 Dose: 4 mg Documented By: CHUY Pantoprazole Sodium (Pantoprazole 40 Mg Tab) 40 mg PO NOW STA Stop: 05/25/25 21:15 Last Admin: 05/25/25 22:14 Dose: 40 mg Documented By: MARQUES Imaging Data Radiologist's Impression: Renal Ultrasound 05/25/25 17:12 EXAM: US renal/blad retro comp CLINICAL HISTORY: Recurrent UTI. TECHNIQUE: Ultrasound of the kidneys and urinary bladder was performed in greyscale and Doppler imaging. COMPARISON: None. FINDINGS: Pancreas: Suboptimal views of the pancreatic head and body cannot be well evaluated, not well visualized at this time of exam. Kidneys: Right Kidney: The right kidney measures 10.3 x 4.7 x 5.0 cm. A simple-appearing cyst measuring 1.3 x 1.4 x 1.1 cm is noted in the lower pole. Left Kidney: The left kidney measures 9.1 x 5.5 x 4.9 cm and is unremarkable. No hydronephrosis, calculi, or masses were identified. Renal parenchymal echogenicity is normal. Cortical thickness: Within normal. Renal pelvis is within normal. Perinephric fat, fluid, and adrenal glands appear unremarkable. Urinary bladder: The urinary bladder appears within normal limits. Ureteral jets were not visualized during the examination. Liver (Incidental Finding): A small, well-defined hyperechoic lesion measuring 9 mm is incidentally noted in the visualized portion of the liver. could be a hemangioma (Image 1 and ). IMPRESSION: 1. No sonographic evidence of hydronephrosis bilaterally. 2. A 1.4 cm simple cyst in the lower pole of the right kidney. 3. A 9 mm hyperechoic lesion in the liver, could be a hemangioma, clinical correlation is advised and if needed, further work-up is suggested. Electronically signed by Dony Mclaughlin 05-26-2025 06:16 AM Discharge Plan Visit Data Chief Complaint: Urinary Symptoms Stated Complaint: URINATE ED Provider: Marcella Chery Discharge Problem: Fatigue, Urinary incontinence, RAKESH (acute kidney injury) Patient Disposition: Admitted As Inpatient Condition: Fair Discharge Instructions Interventions: ED Discharge Assessment Last Done: 05/25/25 20:42
--- NOTE | 2025-05-25 17:38 | History & Physical Report ---
Date of Service May 25, 2025 Assessment & Plan (1) Sepsis: (2) Urinary tract infection: (3) RAKESH (acute kidney injury): (4) Urinary incontinence: (5) Hyponatremia: (6) History of stroke: (7) Sjogren's disease: Plan #Sepsis #Urinary tract infection, #Urinary incontinence Admit medical w/ telemetry for now, likely can downgrade 24hr. HR improved following IVF and suspect 2nd to sepsis +/- possible bacteremia with procal 2 w/ hx RA on methotrexate/infusions 3x/year Continue Ceftriaxone IV - prior urine cx ecoli resistant to FLQ/Bactrim/Ancef but was sensitive. She recieved Macrobid on 05/11 w/ improvement prior Follow urine cx Follow up blood cultures Renal US ordered to eval structural issue for recurrent infection, also w/ RAKESH IVF @ 80cc/hr x 1 L ordered. Received 2L in ER and additional 500cc already ordered prior to admission Tylenol for fever/pain Zofran available Rec to hold off her methotrexate Monitor labs/exam on repeat #Hyponatremia- acute on chronic, suspected 2nd to above/dehydration and will monitor w/ IVF replacement. Further eval if not improved given suspicion for dehydration. #RAKESH on CKD - BUN 26 w/ Cr elevation to 1.44 with baseline Cr <1. Suspect possibly related to dehydration and olmesartan use +/- Celebrex for her RA IVF has been ordered Olmesartan to be placed on hold Renal dose meds/avoid nephrotoxins #Hypomagnesemia - 1.6 on arrival, IV mag 1gm ordered. Additional 1gm IV ordered and will monitor level in AM #Rheumatoid Arthritis- on methotrexate weekly and gets rituximab infusions 3x/year. Hold methotrexate/infusion with acute infection/sepsis and rec as patient already doing to have her infusion rescheduled when recovered from acute infection. Continues celebrex but added PPI as outlined #Nausea- nauseated in ER, Zofran ordered and monitoring response. ?2nd to sepsis/RAKESH as above. Is on pepcid 80mg BID -- ordered 40mg BID to continue, protonix 40mg PO x 1 now and continue daily/monitor response #Hx stroke - continues on aspirin daily. Is on pepcid as above, protonix added. Denied any bleeding/upper abdominal pain but w/ RAKESH/sepsis as above. Aspirin has been continued, remains alert/oriented during encounter DVT proph: SCDs ordered, heparin to be added in AM but checking iron studies given anemia/ensure no issues first (again, no bleeding reported, ?reaction to macrobid) Dispo: admit to med w/ telemetry for sepsis/UTI. Given elevated procal/rigors, suspect could be bacteremic and will need continued monitoring of blood cultures. See Dr Dillon supervising note for further recommendations History of Present Illness Chief Complaint: UTI Primary Care Provider: Sydnee Mckeon MD 69yo female with history of urinary incontinence presented from urgent care for concerns tachycardia/sepsis possibly from urinary source. Hx RA on methotrexate and gets rituximab infusions (three times a year), immunocompromised. Seen in ER, C6, at bedside. Recently given abx by PCP, unsure what it was. Review fill history was given Macrobid 05/[address] Gtz. Reports she had been doing well following the antibiotics however then developed worsening symptoms of fatigue/urinary incontinence over the past 24 hours and went to Urgent care and was sent to the ER. Appears urine cx from 05/07 with E coli, resistant to FLQ, bactrim and ancef but sensitive to Ceftriaxone. Currently nauseated, has not eaten/drank in several days. RN to provide dose of zofran and I provided emesis bag but patient reports typically is just dry heaves. Reports appetite "ok" but reports would just like some water but hasn't been well hydrated for several days. Currently remains appearing dehydrated despite 2L NSS for sepsis criteria. No history of kidney stones/hematuria reported but planning on renal US for further eval. No fevers reported but did have some chills/rigors -maybe once or twice as well over the weekend. Reports feels like cannot get warm c/w rigors Discussed procal elevated and plan to monitor blood cultures to ensure not bacteremic. Lactic 1.5. WBC 8.5k Mag 1.6 Some shortness of breath but no hypoxia, no leg edema. On baby aspirin for history of stroke in the past. Remains alert/oriented. Agreeable to admission for IV antibiotics, hydration, monitoring cultures. Full code. Allergies Allergy/AdvReac Type Severity Reaction Status Date / Time chloroquine AdvReac Severe diarrhea Verified 05/25/25 15:50 and vomiting hydroxychloroquine AdvReac Severe DIARRHEA Verified 05/25/25 15:50 [From Plaquenil] AND VOMITING leflunomide AdvReac Severe DIARRHEA Verified 05/25/25 15:50 AND VOMITING SEA Inhibitors AdvReac Intermediate cough Verified 05/25/25 15:50 atorvastatin AdvReac Intermediate Joint Pain Uncoded 05/25/25 15:50 repatha AdvReac Intermediate Flu-like Uncoded 05/25/25 15:50 symptoms rosuvastatin AdvReac Intermediate Muscle Pain Uncoded 05/25/25 15:50 Home Medications Medication Instructions Recorded Confirmed Type B-complex with vitamin C 1 tab PO QAM 10/11/18 05/25/25 History celecoxib 200 mg capsule (Celebrex) 200 mg PO QAM 10/11/18 05/25/25 History cholecalciferol (vitamin D3) 25 1,000 units PO QAM 10/11/18 05/25/25 History mcg (1,000 unit) capsule famotidine 40 mg tablet (Pepcid) 80 mg PO BID 10/11/18 05/25/25 History methotrexate sodium 2.5 mg tablet 12.5 mg PO WK 10/14/18 05/25/25 History cyclosporine 0.05 % eye drops in a 1 drp ophthalmic (eye) BID 01/03/19 05/25/25 History dropperette (Restasis) acetaminophen 650 mg 1,300 mg PO Q12H PRN Pain 07/05/19 05/25/25 History tablet,extended release (Tylenol Arthritis Pain) diphenhydramine HCl 25 mg capsule 25 mg PO HS PRN Sleep 08/21/19 05/25/25 History (Sleep Aid (diphenhydramine)) melatonin 5 mg tablet 5 mg PO HS PRN Sleep 08/21/19 05/25/25 History rituximab 10 mg/mL 10 mg IV Q6MO 09/01/19 05/25/25 History concentrate,intravenous (Rituxan) folic acid 1 mg tablet 3 mg PO DAILY Hair Loss #120 tabs 02/15/22 05/25/25 History aspirin 81 mg capsule 81 mg PO QPM 02/09/23 05/25/25 History biotin 10,000 mcg capsule 10,000 mcg PO DAILY 12/19/23 05/25/25 History coenzyme Q10 100 mg capsule (Co 100 mg PO DAILY 12/19/23 05/25/25 History Q-10) glucosamine sulf dipot 1 cap PO DAILY 12/19/23 05/25/25 History chlr,msm,chond 550 mg-C 30 mg-barry 1 mg capsule (Glucosamine Chondroitin) cyclobenzaprine 10 mg tablet 10 mg PO TID PRN muscle spasm #90 02/23/25 05/25/25 Rx tabs olmesartan 40 mg tablet 20 mg (1/2 x 40 mg) PO QPM #30 tabs 03/12/25 05/25/25 Rx tramadol 50 mg tablet 50 mg PO TID PRN pain #90 tabs 04/01/25 05/25/25 Rx fluoxetine 20 mg capsule 60 mg (3 x 20 mg) PO QPM #90 caps 04/30/25 05/25/25 Rx ezetimibe 10 mg tablet 10 mg PO DAILY #30 tabs 05/13/25 05/25/25 Rx calcium carbonate (Calcium 600) 600 mg PO DAILY 05/25/25 05/25/25 History magnesium oxide 400 mg PO DAILY 05/25/25 05/25/25 History omega-3 fatty acids 1,000 mg 1,000 mg PO DAILY 05/25/25 05/25/25 History capsule zinc gluconate 50 mg tablet 50 mg PO DAILY 05/25/25 05/25/25 History Past Med/Surg History Problem List Urinary tract infection Sepsis RAKESH (acute kidney injury) (Acute) Urinary incontinence (Acute) Fatigue (Acute) Menopause Family history of colon cancer Abnormal finding on lung imaging Immunosuppressed status COPD (chronic obstructive pulmonary disease) Tingling of left upper extremity Left shoulder pain Multiple thyroid nodules Right thyroid nodule Low back pain Hyperlipidemia Health care maintenance Colon cancer screening Hammer toe Ringing in ears Hearing decreased Myalgia due to statin SOB (shortness of breath) on exertion (Acute) Fatigue (Chronic) Anemia Hyponatremia Mood disorder (Chronic) Bilateral swelling of feet and ankles (Acute) Ataxia (Acute) Gait disturbance (Acute) Scoliosis (Chronic) Tinnitus, bilateral Sensorineural hearing loss of both ears Rheumatoid arthritis (Chronic) Hypertension (Acute) History of stroke (Chronic) 12/2018 during sleep/balance issues, went to [place] ER-CT scan clear; went to [facility] in the next few days "CT scan showed mulitple strokes during her sleep-causing problems w/balance"; f/u shira Pena>"balance issues remain" Bilateral hand pain (Chronic) Cervical pain (Chronic) d/t RA, ROM "is ok" Medical History Menopause Ischemic stroke History of COVID-2019--no symptoms now Sjogren's disease Hyponatremia follows with Dr. Villa Scoliosis Surgical History Hx of left cataract extraction History of foot surgery right hammertoe 02/21/23 @ [place] History of laparoscopic appendectomy (03/25/22) Laparoscopic Appendectomy - Karlee Lindsey DO History of loop recorder ~2018, placed due to having strokes during her sleep; f/u shira rosas>getting checked 12/20/23 History of esophagogastroduodenoscopy (EGD) History of elbow surgery Right ulnar nerve transposition surgery Hx of shoulder surgery Right shoulder reverse total arthroplasty 06/06/[address] Rm in [facility] History of hand surgery 2000 and 2001 Bilateral MCP athroplasty History of knee replacement bilateral Family History Father Myocardial infarction Stroke Mother Family hx of colon cancer Ovarian cancer Neoplasm of ovary Brother Emphysema of lung Other Cancer Heart disease Hypertension Lung disease No family history of adverse response to anesthesia Denies family history of Prostate cancer Breast cancer Colorectal cancer Social History Smoking Status: Never smoker Second Hand Exposure: No; Do You Dip or Chew Tobacco: No; Hx Alcohol Use: No Hx Substance Use: Yes (for pain-03/2023) Last Used Substance Other:: had once without knowing, there was THC in a gummy hubby ordered. Preferred Language: Nepalese Communication Ability: Effective Visual Impairment: Limited Hearing Ability: Use of Hearing Aid English Professor Required: No Beliefs That Will Affect Care: None marital status: Current Living Situation: Spouse and Family Current Living Situation Comment: with current occupational status: retired Feels Safe at Home: Yes Childhood Exposure to Second-Hand Smoke: No Diet: regular caffeine: Yes (1-2 tea daily) Dental Care, Regularly: Yes Physical Activity Frequency: Other Physical Activity Frequency Comment: Exercise limited by physical condition Seatbelt Use: always Sunscreen Use: Yes Assistive Devices: Cane, Denture - Upper and Glasses Review of Systems Review of Systems: All systems reviewed & are unremarkable except as noted in HPI & below Physical Exam Physical Exam: General: 69yo female sitting up in bed, at bedside, nauseated/emesis bag provided/RN to get Zofran IV HEENT : mm DRY, trachea midline Resp: diminished in the bases but no overt wheezing/rales, on room air CV: regular, rates improved since IVF, faint systolic murmur but no pitting edema/calf tenderness, pulses present GI: +BS, slight distension but soft/no overt tenderness/rebound/guarding no chaduhari MSK/Neuro: not confused, answering questions appropriately, able to follow c ommands but generalized weakness/nonfocal Psych: AOx3, cooperative Results & Data Results & Data Vital Signs (Past 12 Hours) Vital Signs Temp Pulse Pulse Resp BP BP Pulse Ox 05/25/25 17:06 85 05/25/25 17:02 86 17 143/99 H 99 05/25/25 15:59 99 H 20 120/75 99 05/25/25 15:29 87 20 104/62 100 05/25/25 14:06 84 18 101/69 99 05/25/25 13:46 82 19 104/66 98 05/25/25 13:42 68 18 100 05/25/25 13:42 78 18 108/66 98 05/25/25 13:25 85 05/25/25 12:18 36.8 C 102 H 20 83/54 L 99 O2 Del Method 05/25/25 17:06 05/25/25 17:02 Room Air 05/25/25 15:59 Room Air 05/25/25 15:29 Room Air 05/25/25 14:06 Room Air 05/25/25 13:46 Room Air 05/25/25 13:42 Room Air 05/25/25 13:42 Room Air 05/25/25 13:25 05/25/25 12:18 Room Air Laboratory Results 05/25/25 05/25/25 Range/Units 16:06 13:14 WBC 8.58 (4.8-10.8) K/ul RBC 3.26 L (4.20-5.40) M/uL Hgb 9.3 L (12.0-16.0) g/dl Hct 29.3 L (37.0-47.0) % MCV 89.9 (80.0-100.0) fL MCH 28.5 (25.0-34.0) pg MCHC 31.7 L (32.0-36.0) g/dL RDW Std Deviation 52.7 H (36.4-46.3) fL RDW Coeff of Hortencia 16.2 H (11.5-14.5) % Plt Count 280 (130-400) K/uL MPV 10.1 (9.4-12.4) fL Immature Gran % (Auto) 7.8 % Neut % (Auto) 78.5 % Lymph % (Auto) 7.3 % Garrett % (Auto) 4.9 % Eos % (Auto) 0.5 % Baso % (Auto) 1.0 % Neut # (Auto) 6.73 H (1.40-6.50) K/uL Lymph # (Auto) 0.63 L (1.20-3.40) K/uL Garrett # (Auto) 0.42 (0.11-0.59) K/uL Eos # (Auto) 0.04 (0.00-0.50) K/uL Baso # (Auto) 0.09 (0.00-0.20) K/uL Immature Gran # (Auto) 0.67 H (0.01-0.20) K/uL Hypersegmented Neuts 1+ Dohle Bodies 1+ Polychromasia 1+ Ovalocytes 1+ Sodium 131 L (136-145) mmol/L Potassium 3.8 (3.5-5.1) mmol/L Chloride 98 (98-107) mmol/L Carbon Dioxide 24 (21-32) mmol/L Anion Gap 9 (3-11) BUN 26 H (6-23) mg/dl Creatinine 1.44 H (0.6-1.2) mg/dl Est Cr Clr Drug Dosing 28.3 ml/min eGFR 38.89 BUN/Creatinine Ratio 18.1 (10-20) Glucose 113 H (70-99(Fasting)) mg/dl Lactate 1.5 (0.4-2.0) mmol/L Calcium 9.9 (8.6-10.3) mg/dl Magnesium 1.6 L (1.7-2.4) mg/dl Total Bilirubin 0.7 (0.2-1.0) mg/dl Direct Bilirubin 0.1 (0-0.2) mg/dl AST 15 (13-39) U/L ALT 10 (7-52) U/L Alkaline Phosphatase 85 (34-104) U/L Troponin I High Sens 8.3 (0-14) pg/ml Total Protein 6.7 (6.0-8.3) gm/dl Albumin 3.6 (3.4-5.0) gm/dl Procalcitonin 2.06 H (0-0.5) ng/ml Urine Color Yellow Urine Appearance Cloudy A (Clear) Urine pH 5.5 (4.5-7.5) Ur Specific Sawyer 1.015 (1.000-1.030) Urine Protein 1+ H (Negative) Urine Glucose (UA) Negative (Negative) Urine Ketones Trace H (Negative) Urine Blood Negative (Negative) Urine Nitrite Negative (Negative) Urine Bilirubin Negative (Negative) Urine Urobilinogen Negative (Negative) Ur Leukocyte Esterase 1+ H (Negative) Urine WBC (Auto) 21-50 H (0-5) /hpf Urine RBC (Auto) 0-2 (0-2) /hpf U Hyaline Cast (Auto) 6-10 H (0-2) /lpf U Epithel Cells (Auto) 0-2 (0-2) /hpf Urine Bacteria (Auto) 4+ H (None Seen) Urine Comment Supervising Physician Co-Signing Physician Notes The patient was seen by me. The chart was reviewed. Case discussed with HATTIE Mascorro. Agree with assessment and plan PG Care Time/CCT Total # of Minutes Spent Total Time Spent with Patient: Total time spent is greater than 50% in coordination of care (as documented) at patient's floor/unit and/or counseling patient: Coding Level of Care Code 58983 INT INP/OBS CARE 3/75MIN Diagnoses Sepsis A41.9 Urinary tract infection N39.0 RAKESH (acute kidney injury) N17.9 Urinary incontinence R32 Hyponatremia E87.1 History of stroke Z86.73 Sjogren's disease M35.00
[2025-05-25] MEDS: ONDANSETRON INJ 2 MG/ML 2 ML VIAL IV STA (17:54)
[2025-05-25] MEDS: ONDANSETRON INJ 2 MG/ML 2 ML VIAL ONE (17:54)
[2025-05-25] MEDS ORDERED: ONDANSETRON INJ 2 MG/ML 2 ML VIAL IV PRN (17:56)
[2025-05-25 18:29] LABS: Iron 20.0 mcg/dl (35-150); Total Iron Binding Cap Calc 298.0 mcg/dl (250-450); Transferrin 213.0 mg/dl (200-360); Transferrin (FE) Percent Satur 7.0 % (15-50)
[2025-05-25] MEDS: SODIUM CHLORIDE 0.9% 500 ML IV SCH (18:30)
[2025-05-25 18:50] LABS: Ferritin 210.4 ng/ml (8-388)
[2025-05-25] MEDS ORDERED: CYCLOBENZAPRINE HCL 10 MG TAB PO PRN (21:14)
[2025-05-25] MEDS ORDERED: diphenhydrAMINE Capsule 25 MG CAP PO PRN (21:14)
[2025-05-25] MEDS: HEPARIN SOD 5,000 UNIT/0.5 ML VIAL SQ SCH (21:15)
[2025-05-25] MEDS ORDERED: ARTIFICIAL TEARS OP PRN (21:22)
[2025-05-25] MEDS ORDERED: MELATONIN 3 MG TAB PO PRN (21:23)
[2025-05-25 21:36] LABS: Creatine Kinase 12.0 U/L (26-192)
[2025-05-25] MEDS ORDERED: Nursing to Pharmacy Communication SCH (22:00)
[2025-05-25] MEDS: MAGNESIUM SULFATE / D5W 1 GM/100 ML BAG IV ONE (22:10)
[2025-05-25] MEDS: ASPIRIN 81 MG ECTAB PO SCH (22:15)
[2025-05-25] MEDS: FAMOTIDINE 40 MG TABLET PO SCH (22:15)
[2025-05-26] MEDS: SODIUM CHLORIDE 0.9% 1,000 ML IV SCH (01:05)
--- NOTE | 2025-05-26 06:16 | Ultrasound Report ---
EXAM: US renal/blad retro comp CLINICAL HISTORY: Recurrent UTI. TECHNIQUE: Ultrasound of the kidneys and urinary bladder was performed in greyscale and Doppler imaging. COMPARISON: None. FINDINGS: Pancreas: Suboptimal views of the pancreatic head and body cannot be well evaluated, not well visualized at this time of exam. Kidneys: Right Kidney: The right kidney measures 10.3 x 4.7 x 5.0 cm. A simple-appearing cyst measuring 1.3 x 1.4 x 1.1 cm is noted in the lower pole. Left Kidney: The left kidney measures 9.1 x 5.5 x 4.9 cm and is unremarkable. No hydronephrosis, calculi, or masses were identified. Renal parenchymal echogenicity is normal. Cortical thickness: Within normal. Renal pelvis is within normal. Perinephric fat, fluid, and adrenal glands appear unremarkable. Urinary bladder: The urinary bladder appears within normal limits. Ureteral jets were not visualized during the examination. Liver (Incidental Finding): A small, well-defined hyperechoic lesion measuring 9 mm is incidentally noted in the visualized portion of the liver. could be a hemangioma (Image 1 and ). IMPRESSION: 1. No sonographic evidence of hydronephrosis bilaterally. 2. A 1.4 cm simple cyst in the lower pole of the right kidney. 3. A 9 mm hyperechoic lesion in the liver, could be a hemangioma, clinical correlation is advised and if needed, further work-up is suggested. Electronically signed by Dony Mclaughlin 05-26-2025 06:16 AM
[2025-05-26 06:41] LABS: Hematocrit (blood only) 22.6 % (37.0-47.0); Hemoglobin 7.3 g/dl (12.0-16.0); Mean Corpuscular Hemoglobin 29.1 pg (25.0-34.0); Mean Corpuscular Volume 90.0 fL (80.0-100.0); Platelet Count 194 K/uL (130-400); RDW Standard Deviation 51.4 fL (36.4-46.3); Red Blood Count 2.51 M/uL (4.20-5.40); White Blood Count 6.56 K/ul (4.8-10.8)
[2025-05-26 07:05] LABS: A calco-baum cmplx NotReported Not Detected (NotDetected); Bact fragilis Not Reported Not Detected (NotDetected); Blood Culture Id Panel See PCR Comment (NotDetected); C auris Not Reported Not Detected (NotDetected); CTX-M Resistant Gene Not Detected (NotDetected); Calbicans Not Reported Not Detected (NotDetected); Candida glabrata Not Reported Not Detected (NotDetected); Candida krusei Not Reported Not Detected (NotDetected); Cneoformans/gatti Not Reported Not Detected (NotDetected); Cparapsilosis Not Reported Not Detected (NotDetected); Ctropicalis Not Reported Not Detected (NotDetected); E cloacae compx Not Reported Not Detected (NotDetected); Efaecalis Not Reported Not Detected (NotDetected); Efaecium Not Reported Not Detected (NotDetected); Enterobacterales DETECTED (NotDetected); Enterobacterales Not Reported DETECTED (NotDetected); Escherichia coli Not Reported DETECTED (NotDetected); H influenzae Not Reported Not Detected (NotDetected); IMP Resistant Gene Not Detected (NotDetected); K aerogenes Not Reported Not Detected (NotDetected); KPC Resistant Gene Not Detected (NotDetected); Koxytoca Not Reported Not Detected (NotDetected); Kpneumoniae grp Not Reported Not Detected (NotDetected); Lmonocyt Not Reported Not Detected (NotDetected); N meningitidis Not Reported Not Detected (NotDetected); NDM Resistant Gene Not Detected (NotDetected); OXA 48 Like Resistant Gene Not Detected (NotDetected); P aeruginosa Not Reported Not Detected (NotDetected); Proteus spp Not Reported Not Detected (NotDetected); Salmonella spp Not Reported Not Detected (NotDetected); Staph lugdunensis Not Reported Not Detected (NotDetected); Staph spp. Not Reported Not Detected (NotDetected); Staphaureus Not Reported Not Detected (NotDetected); Staphepi Not Reported Not Detected (NotDetected); Stenmaltophilia Not Reported Not Detected (NotDetected); Strep agal(GrpB) Not Reported Not Detected (NotDetected); Strep pneum Not Reported Not Detected (NotDetected); Strep pyog (GrpA) Not Reported Not Detected (NotDetected); Strep spp Not Reported Not Detected (NotDetected); VIM Resistant Gene Not Detected (NotDetected); mcr-1 Colistin Resistant Gene Not Detected (NotDetected)
[2025-05-26 07:10] LABS: Anion Gap 7.0 (3-11); Blood Urea Nitrogen 19.0 mg/dl (6-23); Calcium 8.3 mg/dl (8.6-10.3); Carbon Dioxide 21.0 mmol/L (21-32); Chloride 106.0 mmol/L (98-107); Creatinine Clr Calc Pharmacy 40.8 ml/min; Glucose 84.0 mg/dl (70-99(Fasting)); Magnesium 1.9 mg/dl (1.7-2.4); Potassium 3.6 mmol/L (3.5-5.1); Sodium 134.0 mmol/L (136-145)
--- NOTE | 2025-05-26 07:24 | Hospitalist Progress Note ---
Date of Service May 26, 2025 Assessment & Plan (1) Bacteremia: (2) Sepsis: (3) Urinary tract infection: (4) RAKESH (acute kidney injury): (5) Urinary incontinence: (6) Hyponatremia: (7) History of stroke: (8) Sjogren's disease: Plan 69yo female presented with urinary incontinence concerning for UTI despite recent Macrobid 05/11 by PCP (urine cx Ecoli w/ FLQ/Bactrim/Ancef but was sensitive to macrobid) in patient with RA immunosuppressed MTX/rituximab infusions with reports of poor PO intake/fatigue and rigors at home. WBC wnl on admission however was tachycardic and procal elevation to 2 with +UA concerning for sepsis/possible bacteremia with elevated procal/rigors Lactic wnl. s/p 2.5L IVF on admission for sepsis as well as Ceftriaxone IV and admitted for monitoring of blood cultures/urine cultures and Renal US for further evaluation #Bacteremia, #Sepsis - suspected from urinary source #Urinary tract infection Continue Ceftriaxone Urine culture e.coli on preliminary - monitor final sensitivities Blood cultures this morning with GNB, Ecoli on PCR IVF dc given renal function back to baseline 1.0- Anion gap resolved, PO hydration encouraged. Holding olmesartan Renal US w/o hydro, notes 1.4cm simple cyst lower pole R kidney but does note 9mm hyperechoic lesion in liver, ?hemangioma. Further work-up suggested Hgb 7.4 from 9.3 but suspect aspect of dilution given no bleeding reported. ?2nd to macrobid use. LDH not elevated, weighing against hemolysis but retic not elevated, ?suppression from sepsis/bacteremia. Iron studies obtained and low iron 20/trans % sat at 7 and will order Venofer for now and fecal occult w/ next BM. PPI ordered once daily for GI proph w/ aspirin use and if not had c-scope in past likely would benefit from such Continue tylenol for fever/pain, zofran as needed PT/OT consulted Continued inpatient stay monitoring cultures, possible dc 24-48hrs pending response #Anemia- hgb 9s on arrival from prior baseline 10-11s. Iron studies checked/low/Venofer IV planned. Fecal occult next BM. Continues on famotidine but added protonix once daily for proph w/ aspirin however denied epigastric pain or bleeding in stool and will continue to monitor off IVF. #Hyponatremia- acute on chronic, suspected 2nd to above/dehydration and sepsis and improved/stable 134 and IVF discontinued/monitoring. Can check TSH w AM labs for completeness #RAKESH on CKD - elevated BUN/Cr on admission 30/11.44 in setting of above/dehydration/poor PO intake and olmesartan/celebrex use Celebrex continued for RA, cautious use w/ anemia as discussed. Olmesartan on hold Iron studies as above- Venofer IV planned for today Renal dose meds/avoid toxins BMP in AM #Hypomagnesemia - 1.6 on arrival, 2gm IV replacement and normalized on repeat. WIll monitor w/ PPI therapy #Rheumatoid Arthritis- on methotrexate weekly, q3m rituximab infusions (due this upcoming week but rec'd to hold off) Continue celebrex, added PPI for proph. Methotrexate on hold and discussed would hold w/ acute infection as well Therapy evals #Nausea- resolved, continues pepcid BID (reduced 40mg BID), added protonix once daily on admission and no further issues reported but zofran available if needed #Hx stroke - continues on aspirin daily. Is on pepcid as above, protonix added. Denied any bleeding/upper abdominal pain but w/ RAKESH/sepsis as above. Aspirin has been continued, remains alert/oriented during encounter DVT proph: SCDs ordered, ambulation encouraged. No evidence for DVT and given anemia will wait until CT obtained but consideration for Lovenox SQ once daily given renal function back to baseline Dispo: continued inpatient stay for IV abx/monitoring cultures, eval anemia w/ CT liver given renal US reports. Therapy evals pending to ensure no needs at dc Admission and Anticipated Discharge Date Admission Date: May 25, 2025 Supervising Physician Co-Signing Physician Notes The patient was not seen by me. The chart was reviewed. Case discussed with HATTIE Mascorro. Agree with assessment and plan Subjective Eval this morning, resting in bed, about to work with therapy. Appears slightly improved, still fatigued but does report feeling better. Hydration status improved, renal function back to baseline and IVF stopped but still slightly dry/encouraged to push PO fluids given report improvement in appetite. No abdominal pain/epigastric pain, but discussed liver finding on Renal US and getting CT for further evaluation, which she is agreeable to. No issues with contrast dye reported. No bleeding but discussed to check stool for small amount with next bowel movement. Discussed blood cultures positive, match urine. Temp overnight but reports didn't feel rigors like she did in the past. Will monitor for ongoing fever with antibiotics/repeat if continued. No CP/SOB reported, no nausea/vomiting. Questions/concerns addressed at this time. Physical Exam Physical Exam: General: 69yo female sitting up in bed, about to work with therapy, appears improved, fatigued but increased energy/conversational today HEENT: mm improved but still slightly dry, trachea midline Resp: even/diminished in the bases but no wheezing/rales, on room air CV: regular, no significant m/r/g, no pitting edema/calf tenderness GI: +BS, soft/less distension, nontender, no epigastric tenderness/no RUQ tenderness, no guarding/rebound no chaudhari MSK/Neuro: nonfocal/not confused, answering questions appropriately Psych: AOx3, cooperative with exam Results & Data Results & Data Vital Signs (Past 12 Hours) Vital Signs Temp Pulse Pulse Pulse Resp BP BP 05/26/25 04:17 36.9 C 86 16 106/62 05/25/25 22:45 05/25/25 22:45 38.2 C H 122 H 18 145/70 H 05/25/25 21:48 119 H 05/25/25 21:20 139 H 05/25/25 20:00 108 H 16 152/82 H Pulse Ox O2 Del Method 05/26/25 04:17 96 Room Air 05/25/25 22:45 Room Air 05/25/25 22:45 92 Room Air 05/25/25 21:48 05/25/25 21:20 05/25/25 20:00 94 Room Air Laboratory Results 05/26/25 05/25/25 05/25/25 Range/Units 06:22 16:06 13:14 WBC 6.56 8.58 (4.8-10.8) K/ul RBC 2.51 L 3.26 L (4.20-5.40) M/uL Hgb 7.3 L 9.3 L (12.0-16.0) g/dl Hct 22.6 L 29.3 L (37.0-47.0) % MCV 90.0 89.9 (80.0-100.0) fL MCH 29.1 28.5 (25.0-34.0) pg MCHC 32.3 31.7 L (32.0-36.0) g/dL RDW Std Deviation 51.4 H 52.7 H (36.4-46.3) fL RDW Coeff of Hortencia 15.8 H 16.2 H (11.5-14.5) % Plt Count 194 280 (130-400) K/uL MPV 10.2 10.1 (9.4-12.4) fL Immature Gran % (Auto) 7.8 % Neut % (Auto) 78.5 % Lymph % (Auto) 7.3 % Dare % (Auto) 4.9 % Eos % (Auto) 0.5 % Baso % (Auto) 1.0 % Reticulocyte % (Auto) 1.27 (0.50-2.00) % Neut # (Auto) 6.73 H (1.40-6.50) K/uL Lymph # (Auto) 0.63 L (1.20-3.40) K/uL Dare # (Auto) 0.42 (0.11-0.59) K/uL Eos # (Auto) 0.04 (0.00-0.50) K/uL Baso # (Auto) 0.09 (0.00-0.20) K/uL Reticulocyte # 0.030 (0.020-0.100) 10^6/uL Immature Gran # (Auto) 0.67 H (0.01-0.20) K/uL Hypersegmented Neuts 1+ Dohle Bodies 1+ Polychromasia 1+ Ovalocytes 1+ Sodium 134 L 131 L (136-145) mmol/L Potassium 3.6 3.8 (3.5-5.1) mmol/L Chloride 106 98 (98-107) mmol/L Carbon Dioxide 21 24 (21-32) mmol/L Anion Gap 7 9 (3-11) BUN 19 26 H (6-23) mg/dl Creatinine 1.00 D 1.44 H (0.6-1.2) mg/dl Est Cr Clr Drug Dosing 40.8 28.3 ml/min eGFR 60.23 38.89 BUN/Creatinine Ratio 19.0 18.1 (10-20) Glucose 84 113 H (70-99(Fasting)) mg/dl Lactate 1.5 (0.4-2.0) mmol/L Calcium 8.3 L 9.9 (8.6-10.3) mg/dl Magnesium 1.9 1.6 L (1.7-2.4) mg/dl Iron 20 L (35-150) mcg/dl TIBC 298 (250-450) mcg/dl Transferrin 213 (200-360) mg/dl Transferrin % Sat 7 L (15-50) % Ferritin 210.4 (8-388) ng/ml Total Bilirubin 0.7 (0.2-1.0) mg/dl Direct Bilirubin 0.1 (0-0.2) mg/dl AST 15 (13-39) U/L ALT 10 (7-52) U/L Alkaline Phosphatase 85 (34-104) U/L Lactate Dehydrogenase 183 (86-244) U/L Total Creatine Kinase 12 L (26-192) U/L Troponin I High Sens 8.3 (0-14) pg/ml Total Protein 6.7 (6.0-8.3) gm/dl Albumin 3.6 (3.4-5.0) gm/dl Procalcitonin 2.06 H (0-0.5) ng/ml Urine Color Yellow Urine Appearance Cloudy A (Clear) Urine pH 5.5 (4.5-7.5) Ur Specific [place] 1.015 (1.000-1.030) Urine Protein 1+ H (Negative) Urine Glucose (UA) Negative (Negative) Urine Ketones Trace H (Negative) Urine Blood Negative (Negative) Urine Nitrite Negative (Negative) Urine Bilirubin Negative (Negative) Urine Urobilinogen Negative (Negative) Ur Leukocyte Esterase 1+ H (Negative) Urine WBC (Auto) 21-50 H (0-5) /hpf Urine RBC (Auto) 0-2 (0-2) /hpf U Hyaline Cast (Auto) 6-10 H (0-2) /lpf U Epithel Cells (Auto) 0-2 (0-2) /hpf Urine Bacteria (Auto) 4+ H (None Seen) Urine Comment Enterobacterales (PCR) DETECTED A (NotDetected) E. coli (PCR) DETECTED A (NotDetected) Hepatitis C Ab Screen Negative (Negative) mcr-1 Colistin Res Gene PCR Not Detected (NotDetected) blaIMP Car res Gene PCR Not Detected (NotDetected) KPC-Carbap Res Gene PCR Not Detected (NotDetected) blaNDM Car Res Gene PCR Not Detected (NotDetected) OXA-48 Carbapenem Resis Gene (PCR) Not Detected (NotDetected) blaVIM Car Res Gene PCR Not Detected (NotDetected) CTX-M Gene Resistance (PCR) Not Detected (NotDetected) Bld Cult ID Panel PCR See PCR Comment (NotDetected) Diagnostic Findings Renal Ultrasound 05/25/25 17:12 EXAM: US renal/blad retro comp CLINICAL HISTORY: Recurrent UTI. TECHNIQUE: Ultrasound of the kidneys and urinary bladder was performed in greyscale and Doppler imaging. COMPARISON: None. FINDINGS: Pancreas: Suboptimal views of the pancreatic head and body cannot be well evaluated, not well visualized at this time of exam. Kidneys: Right Kidney: The right kidney measures 10.3 x 4.7 x 5.0 cm. A simple-appearing cyst measuring 1.3 x 1.4 x 1.1 cm is noted in the lower pole. Left Kidney: The left kidney measures 9.1 x 5.5 x 4.9 cm and is unremarkable. No hydronephrosis, calculi, or masses were identified. Renal parenchymal echogenicity is normal. Cortical thickness: Within normal. Renal pelvis is within normal. Perinephric fat, fluid, and adrenal glands appear unremarkable. Urinary bladder: The urinary bladder appears within normal limits. Ureteral jets were not visualized during the examination. Liver (Incidental Finding): A small, well-defined hyperechoic lesion measuring 9 mm is incidentally noted in the visualized portion of the liver. could be a hemangioma (Image 1 and ). IMPRESSION: 1. No sonographic evidence of hydronephrosis bilaterally. 2. A 1.4 cm simple cyst in the lower pole of the right kidney. 3. A 9 mm hyperechoic lesion in the liver, could be a hemangioma, clinical correlation is advised and if needed, further work-up is suggested. Electronically signed by Dony Mclaughlin 05-26-2025 06:16 AM PG Care Time/CCT Total # of Minutes Spent Total Time Spent with Patient: Total time spent is greater than 50% in coordination of care (as documented) at patient's floor/unit and/or counseling patient: Coding Level of Care Code 86458 SUB INP/OBS CARE 3/50MIN Diagnoses Bacteremia R78.81 Sepsis A41.9 Urinary tract infection N39.0 RAKESH (acute kidney injury) N17.9 Urinary incontinence R32 Hyponatremia E87.1 History of stroke Z86.73 Sjogren's disease M35.00
[2025-05-26 07:54] LABS: Reticulocytes # 0.030 10^6/uL (0.020-0.100)
[2025-05-26] MEDS: FOLIC ACID 1 MG TAB PO SCH (07:57)
[2025-05-26] MEDS: CALCIUM CARBONATE 1250MG TAB PO SCH (07:58)
[2025-05-26] MEDS: EZETIMIBE 10 MG TAB PO SCH (07:58)
[2025-05-26] MEDS: CeleBREX 200 MG CAP PO SCH (07:58)
[2025-05-26] MEDS: CHOLECALCIFEROL 25 MCG (1000 UNITS) TAB PO SCH (07:58)
[2025-05-26] MEDS: VITAMIN B COMPLEX TAB PO SCH (07:58)
[2025-05-26] MEDS: IRON SUCROSE 300 MG in SODIUM CHLORIDE 0.9% 250 ML IV ONE (09:52)
[2025-05-26] MEDS: OPTIRAY 320 100ml IV ONE (10:40)
--- NOTE | 2025-05-26 11:40 | CT Scan Report ---
CT liver wo/w con HISTORY: 69 years-old Female eval hemangioma vs other, anemia/fatigue 9 mm echogenic liver lesion se en on recent renal ultrasound. COMPARISON: Renal ultrasound of same day, CT abdomen and pelvis 03/25/2023, 06/30/2022 TECHNIQUE: Multiple axial CT images of the abdomen were obtained with and without IV contrast utilizi liver protocol. A dose lowering technique was used consistent with the principals of NOR[facility]. FINDINGS: Trace pericardial effusion. Trace right pleural effusion. Bibasilar atelectasis/fibrosis with mild br onchiectasis. There is mild right hemidiaphragmatic elevation. No pneumatosis or pneumoperitoneum. Unremarkable spleen, pancreas and adrenal glands. Mildly contracted gallbladder. No biliary ductal di lation. Ill-defined 11 x 9 mm lesion within the lesion within segment VII of the liver on image 80 se wale 7 is too small to adequately characterize and appears slightly hypodense on the noncontrast stud y demonstrating no apparent arterial enhancement. This lesion likely demonstrates a degree of periphe ral enhancement on the portal venous phase. Retrospect, this is unchanged dating back to the 2021 exa m. Patency of the hepatic and portal veins. No suspicious liver lesions identified. Liver measures up to 19.8 cm in length and demonstrates no evidence of cirrhosis or hepatic steatosis. There is heterogeneous enhancement with striated bilateral nephrograms. 1.4 cm cyst of the inferior p ole right kidney redemonstrated. No urolith or hydronephrosis. Atherosclerosis of the abdominal aorta . No lymphadenopathy. No bowel obstruction or bowel wall thickening. Unremarkable soft tissues. No ac chicken ranch fracture or bony destruction. IMPRESSION: 1. 11 mm lesion within segment VII of the liver is too small to definitively characterize however fav ors a probable benign hepatic hemangioma and is unchanged dating back to the CT study from 2021. 2. Findings suggestive of bilateral pyelonephritis. Correlate with urinalysis. 3. No hydronephrosis. 4. No bowel obstruction. ACT 112: Negative or not required by law. The above report was generated using voice recognition software. It may contain grammatical, syntax o r spelling errors. Electronically signed by: Shayan Mcdonough M.D. 05/26/2025 11:39 AM
[2025-05-26] MEDS: cefTRIAXone SODIUM 2,000 MG/50 ML BAG IV SCH (16:20)
[2025-05-26] MEDS: ACETAMINOPHEN 325 MG TAB PO PRN (23:32)
[2025-05-27 07:27] LABS: Hematocrit (blood only) 26.0 % (37.0-47.0); Hemoglobin 8.8 g/dl (12.0-16.0); Mean Corpuscular Hemoglobin 30.2 pg (25.0-34.0); Mean Corpuscular Volume 89.3 fL (80.0-100.0); Platelet Count 228 K/uL (130-400); RDW Standard Deviation 52.2 fL (36.4-46.3); Red Blood Count 2.91 M/uL (4.20-5.40); White Blood Count 4.82 K/ul (4.8-10.8)
[2025-05-27 07:48] LABS: Anion Gap 8.0 (3-11); Blood Urea Nitrogen 16.0 mg/dl (6-23); Calcium 8.9 mg/dl (8.6-10.3); Carbon Dioxide 22.0 mmol/L (21-32); Chloride 107.0 mmol/L (98-107); Creatinine Clr Calc Pharmacy 43.4 ml/min; Glucose 88.0 mg/dl (70-99(Fasting)); Magnesium 2.0 mg/dl (1.7-2.4); Potassium 3.6 mmol/L (3.5-5.1); Sodium 137.0 mmol/L (136-145)
--- NOTE | 2025-05-27 07:51 | Hospitalist Progress Note ---
Date of Service May 27, 2025 Assessment & Plan (1) Sepsis: (2) Pyelonephritis: (3) Bacteremia: (4) Urinary tract infection: (5) RAKESH (acute kidney injury): (6) Urinary incontinence: (7) Hyponatremia: (8) History of stroke: (9) Sjogren's disease: Plan 69yo female presented with urinary incontinence concerning for UTI despite recent Macrobid 05/11 by PCP (urine cx Ecoli w/ FLQ/Bactrim/Ancef but was sensitive to macrobid) in patient with RA immunosuppressed MTX/rituximab infusions with reports of poor PO intake/fatigue and rigors at home. WBC wnl on admission however was tachycardic and procal elevation to 2, Lactic wnl. +UA concerning for sepsis/possible bacteremia with elevated procal/rigors but no reported fever however patient did have temp to 38.2C evening of admission however 2.5L IVF in ER w/ CTX 2gm IV and renal US w/o obstruction or hydro #Sepsis, #Bacteremia #Urinary tract infection #Pyelonephritis, bilateral Urinary source with urine/blood cultures, also with CT abdomen noting bilateral pyelonephritis - suspect given upper urinary tract infection as reason for macrobid not working Continues on Ceftriaxone WBC wnl, no further fevers since admission Blood cx 11/08 Ecoli - follow Urine cx ecoli sensitivities show resistance to FLQ, Bactrim. -->Discussed w/ supervising provider and plan to transition to Augmentin BID x 14 day course given bacteremia Adding oxybutynin 5mg BID for urinary incontinence- monitor Continue supportive care, tylenol/zofran as needed PT/OT cleared for home Hopeful dc in AM 05/28 on PO Augmentin if improvement in incontinence 05/27 - CT last evening reporting bilateral pyelonephritis in patient, reported strong pain tolerance when had her appendix go bad. Suspect given upper urinary tract infection this was culprit as to why Macrobid ineffective at clearance. Hgb 8.8 and stable, Venofer ordered x3 doses. WBC wnl. No further fevers On Ceftriaxone IV Urine cx ecoli sensitivities show resistance to FLQ, Bactrim. -->Can consider completing course of Keflex vs Augmentin 875mg BID x 5-7 day course #Anemia- hgb 9s on arrival from prior baseline 10-11s. ?worsened from sepsis/marrow suppression or reaction to macrobid? Hgb 7.4 but no bleeding reported and was on IVF and suspect some dilutional aspect as well LDH not elevated, weighs against hemolysis. Retic not elevated and ?suppression from sepsis/bacteremia but did check iron studies as well and were low iron 20/trans % sat 7 -s/p Venofer 300mg IV 05/26 Hgb improved to 8.8 - will continue Venofer IV today/tomorrow to complete Continue pepcid/protonix, fecal occult next BM Monitor CBC -Note rec outpt c-scope if never done should be entertained. No issues reported on CT #Hyponatremia- acute on chronic, however suspected 2nd to dehydration/sepsis as above. IVF discontinued (initially ordered D51/2NS) and has remained stable and actually normal at 137 today. TSH checked for completeness and wnl. Monitor #RAKESH on CKD - elevated BUN/Cr on admission 26/1.44 in setting of above/dehydration/poor PO intake and olmesartan/celebrex use Celebrex continued for RA, cautious use w/ anemia as discussed. Olmesartan held, Iron replacement as above Cr stable/baseline 0.94, BP 136/84 and will plan to resume olmesartan/hospital equivalent in AM or sooner if needed Monitor BMP #Hypomagnesemia - replaced/resolved. Remained stable on PPI therapy #Rheumatoid Arthritis- on methotrexate weekly, q3m rituximab infusions (due this upcoming week but rec'd to hold off) Continue celebrex, added PPI for proph. Methotrexate on hold and discussed would hold w/ acute infection as well #Nausea- resolved, continues pepcid BID (reduced 40mg BID), added protonix once daily on admission and no further issues reported but zofran available if needed #Hx stroke - continues on aspirin daily. Is on pepcid as above, protonix added. Denied any bleeding/upper abdominal pain but w/ RAKESH/sepsis as above. Aspirin has been continued, remains alert/oriented during encounter DVT proph: SCDs ordered, ambulation encouraged. No evidence for DVT at this time. If remains inpatient past today can add Lovenox SQ Dispo: continued inpatient stay, hopeful dc 05/28 on PO AUgmentin to complete the course Admission and Anticipated Discharge Date Admission Date: May 25, 2025 Supervising Physician Co-Signing Physician Notes The patient was not seen by me. The chart was reviewed. Case discussed with HATTIE Mascorro. Agree with assessment and plan Subjective Patient evaluated this morning, resting soundly in bed. Upset due to incontinence on bathroom floor x 3 last evening, will trial medication for incontinence and monitor response. No fever/chills, chest pain, shortness of breath. Discussed urine/blood cx and sensitivities and if improved issues w/ incontinence will plan for dc tomorrow on Augmentin. Questions/concerns addressed at this time. Physical Exam 2 Physical Exam: General: 69yo female sleeping in bed, awoken, NAD but fatigued appearing/upset about being incontinent HEENT: mm improved , trachea midline Resp: even/diminished in the bases but no wheezing/rales, on room air CV: regular, no significant m/r/g, no pitting edema/calf tenderness GI: +BS, soft/less distension, nontender, no epigastric tenderness/no RUQ tenderness, no guarding/rebound no chaudhari MSK/Neuro: nonfocal/not confused, answering questions appropriately Psych: AOx3, cooperative with exam Results & Data Results & Data Vital Signs (Past 12 Hours) Vital Signs Temp Pulse Pulse Resp BP BP Pulse Ox 05/27/25 07:44 36.3 C L 83 18 136/84 97 05/27/25 07:23 82 05/27/25 02:42 99 H 05/27/25 02:39 36.8 C 77 16 157/83 H 98 05/26/25 22:58 37.0 C 90 18 136/79 96 O2 Del Method 05/27/25 07:44 Room Air 05/27/25 07:23 05/27/25 02:42 05/27/25 02:39 Room Air 05/26/25 22:58 Room Air Laboratory Results 05/27/25 06:32 05/27/25 06:32 Mg 2.0 TSH 2.215 Urine cx - ecoli, resistant to FLQ/Bactrim, Intermed to cefuroxime Diagnostic Findings Liver CT 05/26/25 09:31 CT liver wo/w con HISTORY: 69 years-old Female eval hemangioma vs other, anemia/fatigue 9 mm echogenic liver lesion seen on recent renal ultrasound. COMPARISON: Renal ultrasound of same day, CT abdomen and pelvis 03/25/2023, 06/30/2022 TECHNIQUE: Multiple axial CT images of the abdomen were obtained with and without IV contrast utilizing liver protocol. A dose lowering technique was used consistent with the principals of [facility]. FINDINGS: Trace pericardial effusion. Trace right pleural effusion. Bibasilar atelectasis/fibrosis with mild bronchiectasis. There is mild right hemidiaphragmatic elevation. No pneumatosis or pneumoperitoneum. Unremarkable spleen, pancreas and adrenal glands. Mildly contracted gallbladder. No biliary ductal dilation. Ill-defined 11 x 9 mm lesion within the lesion within segment VII of the liver on image 80 series 7 is too small to adequately characterize and appears slightly hypodense on the noncontrast study demonstrating no apparent arterial enhancement. This lesion likely demonstrates a degree of peripheral enhancement on the portal venous phase. Retrospect, this is unchanged dating back to the 2021 exam. Patency of the hepatic and portal veins. No suspicious liver lesions identified. Liver measures up to 19.8 cm in length and demonstrates no evidence of cirrhosis or hepatic steatosis. There is heterogeneous enhancement with striated bilateral nephrograms. 1.4 cm cyst of the inferior pole right kidney redemonstrated. No urolith or hydronephrosis. Atherosclerosis of the abdominal aorta. No lymphadenopathy. No bowel obstruction or bowel wall thickening. Unremarkable soft tissues. No acute fracture or bony destruction. IMPRESSION: 1. 11 mm lesion within segment VII of the liver is too small to definitively characterize however favors a probable benign hepatic hemangioma and is unchanged dating back to the CT study from 2021. 2. Findings suggestive of bilateral pyelonephritis. Correlate with urinalysis. 3. No hydronephrosis. 4. No bowel obstruction. ACT 112: Negative or not required by law. The above report was generated using voice recognition software. It may contain grammatical, syntax or spelling errors. Electronically signed by: Shayan Mcdonough M.D. 05/26/2025 11:39 AM PG Care Time/CCT Total # of Minutes Spent Total Time Spent with Patient: Total time spent is greater than 50% in coordination of care (as documented) at patient's floor/unit and/or counseling patient: Coding Level of Care Code 85362 SUB INP/OBS CARE 3/50MIN Diagnoses Sepsis A41.9 Pyelonephritis N12 Bacteremia R78.81 Urinary tract infection N39.0 RAKESH (acute kidney injury) N17.9 Urinary incontinence R32 Hyponatremia E87.1 History of stroke Z86.73 Sjogren's disease M35.00
[2025-05-27 08:03] LABS: Thyroid Stimulating Hormone 2.215 uIu/ml (0.300-4.500)
[2025-05-27] MEDS: ZINC SULFATE 220 MG CAPSULE PO SCH (09:31)
[2025-05-27] MEDS: IRON SUCROSE 300 MG in SODIUM CHLORIDE 0.9% 250 ML IV SCH (09:37)
[2025-05-27] MEDS: LOSARTAN POTASSIUM 50 MG TAB PO SCH (20:51)
--- NOTE | 2025-05-28 07:43 | Hospitalist Progress Note ---
Date of Service May 28, 2025 Assessment & Plan (1) Sepsis: (2) Pyelonephritis: (3) Bacteremia: (4) Urinary tract infection: (5) RAKESH (acute kidney injury): (6) Urinary incontinence: (7) Hyponatremia: (8) History of stroke: (9) Sjogren's disease: Plan 69yo female presented with urinary incontinence concerning for UTI despite recent Macrobid 05/11 by PCP (urine cx Ecoli w/ FLQ/Bactrim/Ancef but was sensitive to macrobid) in patient with RA immunosuppressed MTX/rituximab infusi ons with reports of poor PO intake/fatigue and rigors at home. WBC wnl on admission however was tachycardic and procal elevation to 2, Lactic wnl. +UA concerning for sepsis/possible bacteremia with elevated procal/rigors but no reported fever however patient did have temp to 38.2C evening of admission however 2.5L IVF in ER w/ CTX 2gm IV and renal US w/o obstruction or hydro #Sepsis, #Bacteremia #Urinary tract infection #Pyelonephritis, bilateral Urinary source with urine/blood cultures, also with CT abdomen noting bilateral pyelonephritis - suspect given upper urinary tract infection as reason for macrobid not working Continues on Ceftriaxone WBC wnl, no further fevers since admission Blood cx 11/08 Ecoli - follow Urine cx ecoli sensitivities show resistance to FLQ, Bactrim. -->Discussed w/ supervising provider and plan to transition to Augmentin BID x 14 day course given bacteremia Adding oxybutynin 5mg BID for urinary incontinence- monitor Continue supportive care, tylenol/zofran as needed PT/OT cleared for home Hopeful dc in AM 05/28 on PO Augmentin if improvement in incontinence 05/28 -- have switched to Augmentin PO to complete course. Blood cx ecoli resistant to cefazolin. Labs added for today to ensure stable. Oxybutynin effective for incontinence issues and will send 5mg BID prn #Anemia- hgb 9s on arrival from prior baseline 10-11s. ?worsened from sepsis/marrow suppression or reaction to macrobid? Hgb 7.4 but no bleeding reported and was on IVF and suspect some dilutional aspect as well LDH not elevated, weighs against hemolysis. Retic not elevated and ?suppression from sepsis/bacteremia but did check iron studies as well and were low iron 20/trans % sat 7 -s/p Venofer 300mg IV 05/26 Hgb improved to 8.8 - will continue Venofer IV today/tomorrow to complete Continue pepcid/protonix, fecal occult next BM Monitor CBC -Note rec outpt c-scope if never done should be entertained. No issues reported on CT #Hyponatremia- acute on chronic, however suspected 2nd to dehydration/sepsis as above. IVF discontinued (initially ordered D51/2NS) and has remained stable and actually normal at 137 today. TSH checked for completeness and wnl. Monitor #RAKESH on CKD - elevated BUN/Cr on admission 30/11.44 in setting of above/dehydration/poor PO intake and olmesartan/celebrex use Celebrex continued for RA, cautious use w/ anemia as discussed. Olmesartan held, Iron replacement as above Cr stable/baseline 0.94, BP 136/84 and will plan to resume olmesartan/hospital equivalent in AM or sooner if needed Monitor BMP #Hypomagnesemia - replaced/resolved. Remained stable on PPI therapy #Rheumatoid Arthritis- on methotrexate weekly, q3m rituximab infusions (due this upcoming week but rec'd to hold off) Continue celebrex, added PPI for proph. Methotrexate on hold and discussed would hold w/ acute infection as well #Nausea- resolved, continues pepcid BID (reduced 40mg BID), added protonix once daily on admission and no further issues reported but zofran available if needed #Hx stroke - continues on aspirin daily. Is on pepcid as above, protonix added. Denied any bleeding/upper abdominal pain but w/ RAKESH/sepsis as above. Aspirin has been continued, remains alert/oriented during encounter DVT proph: SCDs ordered, ambulation encouraged. No evidence for DVT at this time. If remains inpatient past today can add Lovenox SQ Dispo: continued inpatient stay, hopeful dc 05/28 on PO AUgmentin to complete the course Admission and Anticipated Discharge Date Admission Date: May 25, 2025 Results & Data Results & Data Vital Signs (Past 12 Hours) Vital Signs Temp Pulse Pulse Resp BP BP Pulse Ox 05/28/25 07:24 77 05/28/25 03:29 36.7 C 77 18 140/77 98 05/27/25 23:36 36.2 C L 83 16 139/87 99 05/27/25 22:58 81 05/27/25 19:57 36.7 C 96 H 16 121/77 97 O2 Del Method 05/28/25 07:24 05/28/25 03:29 Room Air 05/27/25 23:36 Room Air 05/27/25 22:58 05/27/25 19:57 Room Air PG Care Time/CCT Total # of Minutes Spent Total Time Spent with Patient: Total time spent is greater than 50% in coordination of care (as documented) at patient's floor/unit and/or counseling patient: Coding Diagnoses Sepsis A41.9 Pyelonephritis N12 Bacteremia R78.81 Urinary tract infection N39.0 RAKESH (acute kidney injury) N17.9 Urinary incontinence R32 Hyponatremia E87.1 History of stroke Z86.73 Sjogren's disease M35.00
[2025-05-28] MEDS: AMOXICILLIN/CLAVULANATE 875 MG TAB PO SCH (07:52)
[2025-05-28 08:08] VITALS: RESP 24; TEMP 97.7; O2SAT 96
[2025-05-28 08:35] LABS: Hematocrit (blood only) 25.5 % (37.0-47.0); Hemoglobin 8.1 g/dl (12.0-16.0); Mean Corpuscular Hemoglobin 28.7 pg (25.0-34.0); Mean Corpuscular Volume 90.4 fL (80.0-100.0); Platelet Count 226 K/uL (130-400); RDW Standard Deviation 53.7 fL (36.4-46.3); Red Blood Count 2.82 M/uL (4.20-5.40); White Blood Count 3.48 K/ul (4.8-10.8)
--- NOTE | 2025-05-28 08:49 | Discharge Summary ---
Discharge Summary Date of Service May 28, 2025 Principal Dx & Hospital Course #1 = Principal Diagnosis (1) Sepsis: (2) Pyelonephritis: (3) Bacteremia: (4) Urinary tract infection: (5) RAKESH (acute kidney injury): (6) Urinary incontinence: (7) Hyponatremia: (8) History of stroke: (9) Sjogren's disease: Plan 69yo female presented with urinary incontinence concerning for UTI despite recent Macrobid / by PCP (urine cx Ecoli w/ FLQ/Bactrim/Ancef but was sensitive to macrobid) in patient with RA immunosuppressed MTX/rituximab infusions with reports of poor PO intake/fatigue and rigors at home. WBC wnl on admission however was tachycardic and procal elevation to 2, Lactic wnl. +UA concerning for sepsis/possible bacteremia with elevated procal/rigors but no reported fever however patient did have temp to 38.2C evening of admission however 2.5L IVF in ER w/ CTX 2gm IV and renal US w/o obstruction or hydro #Sepsis, #Bacteremia #Urinary tract infection #Pyelonephritis, bilateral Urinary source with urine/blood cultures, also with CT abdomen noting bilateral pyelonephritis- suspect given upper urinary tract infection as reason for macrobid not working. No hydro/stone Placed on Ceftriaxone IV Temp 38.2C on admission, no further fevers since Blood cx Ecoli, resistant to FLQ/bactrim, intermed cefuroxime and cefazolin but sensitive to Ceftriaxone Urine cx Ecoli resistant to FLQ/Bactrim, intermed cefuroxime Provided IVF hydration/sepsis protocol and additional 1L on admission and improvement in PO intake and normalized renal function Patient feeling well and wanting to go home today, discussed Augmentin PO to complete the course, given bacteremia TID dosing, 14 day total course. To monitor for any diarrhea Patient reports feeling well. No CP/SOB despite hgb low. Unclear cause but denied any abdominal pain/no blood in urine or stool. Did discuss to continue protonix once daily, is on pepcid 80mg BID at baseline and suspect rather needs to have ppi therapy. Did get Venofer x 3 while inpatient and rec to monitor for any bleeding/rec repeat CBC with PCP this upcoming week. Consideration for c- scope but also could consider empiric PPI BID despite no fecal occult obtained while inpatient #Anemia- hgb 9s on arrival from prior baseline 10-11s. ?worsened from sepsis/marrow suppression or reaction to macrobid? Hgb 7.4 but no bleeding reported and was on IVF and suspect some dilutional aspect as well LDH not elevated, weighs against hemolysis. Retic not elevated and ?suppression from sepsis/bacteremia but did check iron studies as well and were low iron 20/trans % sat 7 -s/p Venofer 300mg x2 and repeated prior to dc. Hgb improved to 8.8 off IVF but unclear cause/lab error? no bleeding reported Discussed as above continue protonix once daily, entertain c-scope and should have repeat cbc w/ PCP this upcoming week or alert if any bleeding/issues reported. No issues reported on CT, did note likely benign hemangioma but too small to characterize. #Hyponatremia- acute on chronic, however suspected 2nd to dehydration/sepsis as above. IVF discontinued (initially ordered D51/2NS) and has remained stable and actually normal and remained normal w/ PO intake. TSH checked for completeness and wnl. #RAKESH on CKD - elevated BUN/Cr on admission 30/11.44 in setting of above/dehydration/poor PO intake and olmesartan/celebrex use Celebrex continued for RA, cautious use w/ anemia as discussed. Olmesartan held, Iron replacement as above Resumed losartan for hospital equivalent and can continue at il given renal function remains at basleine 0.9 #Hypomagnesemia - replaced/resolved. Remained stable on PPI therapy #Rheumatoid Arthritis- on methotrexate weekly, q3m rituximab infusions (due this upcoming week but rec'd to hold off) Continue celebrex, added PPI for proph and continued - rec cautious NSAIDs Methotrexate on hold and discussed would hold w/ acute infection as well #Nausea- resolved, continues pepcid BID (reduced 40mg BID), added protonix once daily on admission and no further issues reported but zofran available if needed #Hx stroke - continues on aspirin daily. Is on pepcid as above, protonix added. Denied any bleeding/upper abdominal pain but w/ RAKESH/sepsis as above. Aspirin has been continued, remains alert/oriented during encounter. Plavix switch if any issues in future Notes For Next Care Provider Patient sent on course of Augmentin to complete 14 day course given urine/blood cultures and immunosuppression from infusion/methotrexate but was instructed to hold her RA meds until completed course of antibiotics. Did send oxybuytnin for incontinence with significant improvement reported. Did check iron studies/provided Venofer x 3 prior to dc despite low hgb no bleeding reported but is on celebrex and aspirin at baseline and review meds w/ pepcid 80mg BID and have added protonix once daily and if not alreayd done c- scope should be entertained in follow up. Rec to patient to have repeat blood counts the next week with primary care but felt well/wanted to go home. Medication Changes From Visit Augmentin TID x 14 day total course (11 days following 3 IV) Oxybutynin 5mg BID prn Protonix 40mg once daily Admission HPI Per Admitting Provider 69yo female with history of urinary incontinence presented from urgent care for concerns tachycardia/sepsis possibly from urinary source. Hx RA on methotrexate and gets rituximab infusions (three times a year), immunocompromised. Seen in ER, C6, at bedside. Recently given abx by PCP, unsure what it was. Review fill history was given Macrobid 05/[address] Gtz. Reports she had been doing well following the antibiotics however then developed worsening symptoms of fatigue/urinary incontinence over the past 24 hours and went to Urgent care and was sent to the ER. Appears urine cx from 05/07 with E coli, resistant to FLQ, bactrim and ancef but sensitive to Ceftriaxone. Currently nauseated, has not eaten/drank in several days. RN to provide dose of zofran and I provided emesis bag but patient reports typically is just dry h eaves. Reports appetite "ok" but reports would just like some water but hasn't been well hydrated for several days. Currently remains appearing dehydrated despite 2L NSS for sepsis criteria. No history of kidney stones/hematuria reported but planning on renal US for further eval. No fevers reported but did have some chills/rigors -maybe once or twice as well over the weekend. Reports feels like cannot get warm c/w rigors Discussed procal elevated and plan to monitor blood cultures to ensure not bacteremic. Lactic 1.5. WBC 8.5k Mag 1.6 Some shortness of breath but no hypoxia, no leg edema. On baby aspirin for history of stroke in the past. Remains alert/oriented. Agreeable to admission for IV antibiotics, hydration, monitoring cultures. Full code. Admission Exam Per Admitting Provider General: 69yo female sitting up in bed, at bedside, nauseated/emesis bag provided/RN to get Zofran IV HEENT : mm DRY, trachea midline Resp: diminished in the bases but no overt wheezing/rales, on room air CV: regular, rates improved since IVF, faint systolic murmur but no pitting edema/calf tenderness, pulses present GI: +BS, slight distension but soft/no overt tenderness/rebound/guarding no chaudhari MSK/Neuro: not confused, answering questions appropriately, able to follow commands but generalized weakness/nonfocal Psych: AOx3, cooperative Discharge Exam General: 69yo female sleeping in bed, awoken, NAD but fatigued appearing/upset about being incontinent HEENT: mm improved , trachea midline Resp: even/diminished in the bases but no wheezing/rales, on room air CV: regular, no significant m/r/g, no pitting edema/calf tenderness GI: +BS, soft/nontender, no guarding/rebound no chaudhari MSK/Neuro: nonfocal/not confused, answering questions appropriately Psych: AOx3, cooperative with exam Discharge Plan Discharge Items Patient Disposition: Home - Self-Care Reason For Visit: SEPSIS, UTI Discharge Diagnosis: Sepsis, Bacteremia (bacterial infection in the blood), Urinary tract infection/pyelonephritis Condition on Discharge: Fair Goals: You have been hospitalized for an acute medical problem. During your stay at [facility], we have made an effort to correct the problem that brought you to the hospital while keeping you as comfortable as possible. Medications were used to bring your condition under control and your discharge instructions will include directions for any medications you should take after leaving the hospital. Please make sure you see your Primary Care Provider as part of your follow up plan. Activity: Resume your previous activity Non-emergency contact: Primary Care Provider Call non-emergency contact if: you have any medication questions, your symptoms worsen, your pain is not controlled, your pain is concerning for you and you have a fever Follow-up/Referrals: Rivka Estes PA-C [[employer]] - 06/04/25 3:30 pm (Rivka Estes is a Physian [employer] that works with Dr. Roberson. She will see you for your hospital follow up. Please arrive 15 min before your scheduled appointment. Thank you!) Diet: Heart Healthy Addtl Attending Provider Instructions: You have been hospitalized for concerns for urinary incontinence concerning for urinary tract infection. As discussed the infection that grew in the urine is the same that grew in the blood and this is likely from not having antibiotic coverage to cover for an upper urinary tract infection with macrobid previously despite cultures showing this should work. You have been treated with IV antibiotics and appear to have been much improved. We have also ordered OXYBUTYNIN as a medication to help with incontinence issues and appears to have worked nicely. We are sending you home with this medication to use once to twice daily as needed. We are sending you home on AUGMENTIN for an antibiotic which will be continued for 11 days further for a 14 day course given the bacteria in the blood and kidneys to ensure clearance. This will be THREE TIMES A DAY and will have an other 10 days after today to complete the course. Monitor for diarrhea/let primary care know if this occurs. We added pantoprazole while in the hospital for possible reflux symptoms given your use of pepcid (famotidine) and may benefit from ongoing use and have sent a prescription for such to continue at discharge and recommend discussing this with primary care. We recommend you also have repeat blood counts in follow up with primary care to make sure your hemoglobin improves but should alert primary care if any blood in urine/stool or for any chest pain/shortness of breath. You can also discuss using this twice a day in place of pepcid given use of celebrex as well. If not already had colonoscopy, should have one for screening. Please follow up with primary care as well as rheumatology. I would recommend you HOLD OFF Methotrexate as well as rituximab infusions until you are done with your treatment for the current infection. Please return to the ER with any increased urinary symptoms, fever/chills, inability to keep up with oral hydration or for any other symptoms concerning for you. It has been a pleasure being a part of the medical team providing for you while you have been in the hospital. Take care! Pending Studies at Discharge: Yes Studies:: blood cultures -- ecoli at 48 hours Stand-Alone Forms: My [facility], Smoking Cessation Medications and DC Order Prescriptions: New pantoprazole 40 mg Tablet,Delayed Release (Dr/Ec) 40 mg PO QAM Qty: 30 0RF oxybutynin chloride 5 mg Tablet 5 mg PO BID Qty: 14 0RF amoxicillin-pot clavulanate 875-125 mg tablet 1 tab PO Q8H 11 Days Qty: 32 0RF Continued celecoxib [Celebrex] 200 mg capsule 200 mg PO QAM famotidine [Pepcid] 40 mg tablet 80 mg PO BID cholecalciferol (vitamin D3) 1,000 unit capsule 1,000 units PO QAM B-complex with vitamin C tablet extended release 1 tab PO QAM cyclobenzaprine 10 mg tablet 10 mg PO TID PRN (Reason: muscle spasm) Qty: 90 1RF olmesartan 40 mg tablet 20 mg PO QPM Qty: 30 11RF tramadol 50 mg tablet 50 mg PO TID PRN (Reason: pain) Qty: 90 0RF fluoxetine 20 mg capsule 60 mg PO QPM Qty: 90 5RF ezetimibe 10 mg tablet 10 mg PO DAILY Qty: 30 5RF folic acid 1 mg tablet 3 mg PO DAILY Qty: 120 cyclosporine [Restasis] 0.05 % dropperette 1 drp ophthalmic (eye) BID acetaminophen [Tylenol Arthritis Pain] 650 mg Tablet Extended Release 1,300 mg PO Q12H PRN (Reason: Pain) diphenhydramine HCl [Sleep Aid (diphenhydramine)] 25 mg Capsule 25 mg PO HS PRN (Reason: Sleep) melatonin 5 mg Tablet 5 mg PO HS PRN (Reason: Sleep) biotin 10,000 mcg Capsule 10,000 mcg PO DAILY coenzyme Q10 [Co Q-10] 100 mg Capsule 100 mg PO DAILY Glucosamine Chondroitin 550-30-1 mg Capsule 1 cap PO DAILY aspirin 81 mg Capsule 81 mg PO QPM omega-3 fatty acids 1,000 mg Capsule 1,000 mg PO DAILY calcium carbonate [Calcium 600] 600 mg calcium (1,500 mg) Tablet 600 mg PO DAILY zinc gluconate 50 mg Tablet 50 mg PO DAILY magnesium oxide 400 mg magnesium Tablet 400 mg PO DAILY Held methotrexate sodium 2.5 mg tablet 12.5 mg PO WK Hold Instructions: until antibiotics are completed Rx Instructions: FRIDAYS Rituxan 10 mg/mL concentrate 10 mg IV Q6MO Hold Instructions: until completed antibiotics Rx Instructions: TAKES 3 X YEAR Discharge Orders: Discharge Order (Routine); Ordered 05/28/25 Ordered By: Penny Babb Admission Data Admit Date/Time: 05/25/25 17:56 Attending Provider: Hayder Dillon Admit Provider: Hayder Dillon Primary Care Provider: Sydnee Mckeon V. Other Providers: Hayder Dillon Hospital Stay Data Consultations 05/25/25 17:40 ED Decision to Admit Stat Diagnostic Imagining Performed Renal Ultrasound 05/25/25 17:12 EXAM: US renal/blad retro comp CLINICAL HISTORY: Recurrent UTI. TECHNIQUE: Ultrasound of the kidneys and urinary bladder was performed in greyscale and Doppler imaging. COMPARISON: None. FINDINGS: Pancreas: Suboptimal views of the pancreatic head and body cannot be well evaluated, not well visualized at this time of exam. Kidneys: Right Kidney: The right kidney measures 10.3 x 4.7 x 5.0 cm. A simple-appearing cyst measuring 1.3 x 1.4 x 1.1 cm is noted in the lower pole. Left Kidney: The left kidney measures 9.1 x 5.5 x 4.9 cm and is unremarkable. No hydronephrosis, calculi, or masses were identified. Renal parenchymal echogenicity is normal. Cortical thickness: Within normal. Renal pelvis is within normal. Perinephric fat, fluid, and adrenal glands appear unremarkable. Urinary bladder: The urinary bladder appears within normal limits. Ureteral jets were not visualized during the examination. Liver (Incidental Finding): A small, well-defined hyperechoic lesion measuring 9 mm is incidentally noted in the visualized portion of the liver. could be a hemangioma (Image 1 and /). IMPRESSION: 1. No sonographic evidence of hydronephrosis bilaterally. 2. A 1.4 cm simple cyst in the lower pole of the right kidney. 3. A 9 mm hyperechoic lesion in the liver, could be a hemangioma, clinical correlation is advised and if needed, further work-up is suggested. Electronically signed by Dony Mclaughlin 05-26-2025 06:[address] 05/26/25 09:31 CT liver wo/w con HISTORY: 69 years-old Female eval hemangioma vs other, anemia/fatigue 9 mm echogenic liver lesion seen on recent renal ultrasound. COMPARISON: Renal ultrasound of same day, CT abdomen and pelvis 03/25/2023, 06/30/2022 TECHNIQUE: Multiple axial CT images of the abdomen were obtained with and without IV contrast utilizing liver protocol. A dose lowering technique was used consistent with the principals of [facility]. FINDINGS: Trace pericardial effusion. Trace right pleural effusion. Bibasilar atelectasis/fibrosis with mild bronchiectasis. There is mild right he midiaphragmatic elevation. No pneumatosis or pneumoperitoneum. Unremarkable spleen, pancreas and adrenal glands. Mildly contracted gallbladder. No biliary ductal dilation. Ill-defined 11 x 9 mm lesion within the lesion within segment VII of the liver on image 80 series 7 is too small to adequately characterize and appears slightly hypodense on the noncontrast study demonstrating no apparent arterial enhancement. This lesion likely demonstrates a degree of peripheral enhancement on the portal venous phase. Retrospect, this is unchanged dating back to the 2021 exam. Patency of the hepatic and portal veins. No suspicious liver lesions identified. Liver measures up to 19.8 cm in length and demonstrates no evidence of cirrhosis or hepatic steatosis. There is heterogeneous enhancement with striated bilateral nephrograms. 1.4 cm cyst of the inferior pole right kidney redemonstrated. No urolith or hydronephrosis. Atherosclerosis of the abdominal aorta. No lymphadenopathy. No bowel obstruction or bowel wall thickening. Unremarkable soft tissues. No acute fracture or bony destruction. IMPRESSION: 1. 11 mm lesion within segment VII of the liver is too small to definitively characterize however favors a probable benign hepatic hemangioma and is unchanged dating back to the CT study from 2021. 2. Findings suggestive of bilateral pyelonephritis. Correlate with urinalysis. 3. No hydronephrosis. 4. No bowel obstruction. ACT 112: Negative or not required by law. The above report was generated using voice recognition software. It may contain grammatical, syntax or spelling errors. Electronically signed by: Shayan Mcdonough M.D. 05/26/2025 11:39 AM Discharge Instructions Given to Patient (Per Discharging Provider) You have been hospitalized for concerns for urinary incontinence concerning for urinary tract infection. As discussed the infection that grew in the urine is the same that grew in the blood and this is likely from not having antibiotic coverage to cover for an upper urinary tract infection with macrobid previously despite cultures showing this should work. You have been treated with IV antibiotics and appear to have been much improved. We have also ordered OXYBUTYNIN as a medication to help with incontinence issues and appears to have worked nicely. We are sending you home with this medication to use once to twice daily as needed. We are sending you home on AUGMENTIN for an antibiotic which will be continued for 11 days further for a 14 day course given the bacteria in the blood and kidneys to ensure clearance. This will be THREE TIMES A DAY and will have another 10 days after today to complete the course. Monitor for diarrhea/let primary care know if this occurs. We added pantoprazole while in the hospital for possible reflux symptoms given your use of pepcid (famotidine) and may benefit from ongoing use and have sent a prescription for such to continue at discharge and recommend discussing this with primary care. We recommend you also have repeat blood counts in follow up with primary care to make sure your hemoglobin improves but should alert primary care if any blood in urine/stool or for any chest pain/shortness of breath. You can also discuss using this twice a day in place of pepcid given use of celebrex as well. If not already had colonoscopy, should have one for screening. Please follow up with primary care as well as rheumatology. I would recommend you HOLD OFF Methotrexate as well as rituximab infusions until you are done with your treatment for the current infection. Please return to the ER with any increased urinary symptoms, fever/chills, inability to keep up with oral hydration or for any other symptoms concerning for you. It has been a pleasure being a part of the medical team providing for you while you have been in the hospital. Take care! Supervising Physician Co-Signing Physician Notes The patient was not seen by me. The chart was reviewed. Case discussed with HATTIE Mascorro. Agree with assessment and plan Total Time Total Time Spent Total Time Spent (In Minutes): 45 Coding Level of Care Code 64094 INP/OBS DISCH >30 MIN Diagnoses Sepsis A41.9 Pyelonephritis N12 Bacteremia R78.81 Urinary tract infection N39.0 RAKESH (acute kidney injury) N17.9 Urinary incontinence R32 Hyponatremia E87.1 History of stroke Z86.73 Sjogren's disease M35.00
[2025-05-28 09:03] LABS: Anion Gap 7.0 (3-11); Blood Urea Nitrogen 15.0 mg/dl (6-23); Calcium 8.8 mg/dl (8.6-10.3); Carbon Dioxide 24.0 mmol/L (21-32); Chloride 105.0 mmol/L (98-107); Creatinine Clr Calc Pharmacy 48.6 ml/min; Glucose 88.0 mg/dl (70-99(Fasting)); Potassium 3.6 mmol/L (3.5-5.1); Sodium 136.0 mmol/L (136-145)
[2025-05-28 10:39] VITALS: BP 140/77; PULSE 122
[2025-05-28] MEDS ORDERED: AMOXICILLIN/CLAVULANATE 875 MG TAB PO SCH (14:00)
--- NOTE | 2025-05-30 07:26 | Electrocardiogram Report ---
Test Reason : Blood Pressure : */* mmHG Vent. Rate : 82 BPM Atrial Rate : 82 BPM P-R Int : 130 ms QRS Dur : 88 ms QT Int : 394 ms P-R-T Axes : 41 23 55 degrees QTcB Int : 460 ms Normal sinus rhythm Cannot rule out Anterior infarct , age undetermined Abnormal ECG When compared with ECG of 25-Mar-2023 20:01, No significant change was found Confirmed by Jimenez Bullard ([id number]) on 05/30/2025 7:26:17 AM Referred By: Sydnee Mckeon Confirmed By: Jimenez Bullard
== END 2025-05-28 11:11 | disposition home or self-care (01) | DRG 872 ==
LOC: SUATTDRO → ED 12:16 → 2N 17:56